=== PATIENT | female | born 1965 | race Two or more races ===

== ENCOUNTER 2018-03-05 14:28 | Inpatient (IN) | payer MEDICAID ==
[~2018-03-05] VITALS: Ht 162.6 cm; Wt 52.6 kg
[2018-03-05 14:44] VITALS: BP 157/85
[2018-03-05] MEDS ORDERED: Morphine Sulfate 4mg/ml Inj IVP ONE (15:00)
[2018-03-05] MEDS ORDERED: Isovue-300 100ml vial INJ PRN (15:00)
[2018-03-05] MEDS ORDERED: Ketorolac 30mg Inj IV ONE (15:00)
[2018-03-05 15:18] LABS: BASOPHILS % (AUTO) 0.6 % (0.0-2.0); EOSINOPHILS % (AUTO) 0.3 % (0.0-3.0); HEMATOCRIT 41.3 % (37.0-47.0); HEMOGLOBIN 13.7 G/DL (12.0-16.0); MEAN CORPUSCULAR VOLUME 86 FL (80-99); MONOCYTES % (AUTO) 3.5 % (1.0-10.0); NEUTROPHILS % (AUTO) 84.6 % (45.0-75.0); PLATELET COUNT 327 K/UL (150-450); RED BLOOD COUNT 4.81 M/UL (4.20-5.40); RED CELL DISTRIBUTION WIDTH 12.2 % (11.6-14.8); WHITE BLOOD COUNT 12.2 K/UL (4.8-10.8)
[2018-03-05 15:22] LABS: APPEARANCE,URINE SLIGHTLY CLOUDY; BILIRUBIN, URINE NEGATIVE (NEGATIVE); COLOR,URINE PALE YELLOW; GLUCOSE, URINE (UA) 4+ (NEGATIVE); KETONES,URINE 2+ (NEGATIVE); LEUKOCYTE ESTERASE ,URINE 3+ (NEGATIVE); NITRITE,URINE NEGATIVE (NEGATIVE); PH,URINE 5 (4.5-8.0); PROTEIN,URINE 3+ (NEGATIVE); UROBILINOGEN,URINE NORMAL MG/DL (0.0-1.0)
[2018-03-05 15:38] LABS: ALANINE AMINOTRANSFERASE 31 U/L (12-78); ALBUMIN 3.2 G/DL (3.4-5.0); ALBUMIN/GLOBULIN RATIO 0.6 (1.0-2.7); ALKALINE PHOSPHATASE 165 U/L (46-116); ANION GAP 16 mmol/L (5-15); ASPARTATE AMINO TRANSFERASE 73 U/L (15-37); BILIRUBIN,TOTAL 0.6 MG/DL (0.2-1.0); BLOOD UREA NITROGEN 20 mg/dL (7-18); CALCIUM 9.5 MG/DL (8.5-10.1); CARBON DIOXIDE 17 MMOL/L (21-32); CHLORIDE 91 MMOL/L (98-107); CREATININE 1.3 MG/DL (0.55-1.30); SODIUM 125 MMOL/L (136-145)
[2018-03-05 15:40] LABS: POTASSIUM 6.6 MMOL/L (3.5-5.1)
--- NOTE | 2018-03-05 16:15 | Emergency Room Report ---
History of Present Illness General Chief Complaint: Abdominal Pain Source: Patient, Medical Record Present Illness HPI 53-year-old female presents ED complaining of abdominal pain. Brought in by EMS. States pain started this morning. Right upper abdomen, sharp, 10 out of 10, nonradiating. Denies fevers chills. Denies chest pain or shortness of breath. Patient has history of pancreatitis. Notes history of diabetes. Denies nausea or vomiting. No other aggravating relieving factors. Denies any other associated symptoms Allergies: Coded Allergies: SULFAMETHOXAZOLE (Verified Allergy, Unknown, SWELLING, 03/05/18) TRIMETHOPRIM (Verified Allergy, Unknown, SWELLING, 03/05/18) Patient History Past Medical History: DM, HTN, other - pancreatitis Past Surgical History: none Pertinent Family History: none Social History: Denies: smoking, alcohol use, drug use Now: No Immunizations: UTD Reviewed Nursing Documentation: PMH: Agreed; PSxH: Agreed Nursing Documentation-PMH Past Medical History: No History, Except For Hx Diabetes: Yes Hx Gastrointestinal Problems: Yes - pancreatitis Review of Systems All Other Systems: negative except mentioned in HPI Physical Exam Vital Signs Date Time Temp Pulse Resp B/P (MAP) Pulse Ox O2 Delivery O2 Flow Rate FiO2 03/05/18 14:25 97.7 79 16 155/87 99 Room Air 97.7 Sp02 EP Interpretation: reviewed, normal General Appearance: alert, GCS 15, non-toxic, moderate distress Head: normocephalic, atraumatic Eyes: bilateral eye normal inspection, bilateral eye PERRL ENT: hearing grossly normal, normal pharynx, no angioedema, normal voice Neck: full range of motion, supple/symm/no masses Respiratory: chest non-tender, lungs clear, normal breath sounds, speaking full sentences Cardiovascular #1: regular rate, rhythm, no edema Cardiovascular #2: 2+ carotid (R), 2+ carotid (L), 2+ radial (R), 2+ radial (L) , 2+ dorsalis pedis (R), 2+ dorsalis pedis (L) Gastrointestinal: normal bowel sounds, soft, non-distended, no guarding, no rebound, tenderness Rectal: deferred Genitourinary: normal inspection, no CVA tenderness Musculoskeletal: back normal, gait/station normal, normal range of motion, non- tender Neurologic: alert, oriented x3, responsive, motor strength/tone normal, sensory intact, speech normal Psychiatric: judgement/insight normal, memory normal, mood/affect normal, no suicidal/homicidal ideation Reflexes: 3+ bicep (R), 3+ bicep (L), 3+ tricep (R), 3+ tricep (L), 3+ knee (R) , 3+ knee (L) Skin: normal color, no rash, warm/dry, well hydrated Lymphatic: no adenopathy Procedures Critical Care Time Critical Care Time i. I feel this is a highly complex case requiring extensive working including EKG/Rhythm strip, Xray/CT/US, Blood/urine lab work, repeat exams while in ED, and administration of strong opiates/narcotics for pain control, admission to hospital or close patient follow up. Total time: 30 min bedside evaluation and treatment excludes procedures (EKG). Reason for critical care: hypergylcemia, pancreatitis, hyperkalemia Possible complications: hypotension, hypertension, ID, shock, arrhythmias, metabolic acidosis, end organ damage, respiratory failure. Interventions: labs, IVFS, pain meds, CT. insulin. kayexelate. abx. Course: Patient presenting with abdominal pain. Lipase greater than 7000, glucose greater than 500 but not DKA. Positive UTI. CT shows pancreatitis with pancreatic duct stone. Status post cholecystectomy. Given IV fluids, insulin. Given Kayexalate. Given antibiotics Consultations: nursing staff, EMS, family Performed by: Dr Bernardo Tolerated well condition = serious j. because of unstable vital signs this patient had a condition that could potentially threaten life or limb. I feel this is a critical patient who required my full attention while patient was considered critical. Total Critical Care Time excluding procedures was greater than 35 minutes Medical Decision Making Diagnostic Impression: Primary Impression: Pancreatitis Qualified Codes: K85.10 - Biliary acute pancreatitis without necrosis or infection Additional Impressions: Hyperkalemia Hyperglycemia UTI (urinary tract infection) Qualified Codes: N39.0 - Urinary tract infection, site not specified ER Course Hospital Course 53-year-old female presents to ED with abdominal pain Differential diagnoses include: BPH, cystitis, pyelonephritis, kidney stone Clinical course Patient placed on stretcher. pvc monitor. After initial history and physical I ordered labs, IV fluids, UA, pain medication and CT scan Labs - no leukocytosis, Hb/Hct stable. Na 125, K 6.8, glucose > 500 with ? DKA. lipase > 7000 CT abdomen and pelvis - pancreatitis, with pancreatic duct stone EKGnormal sinus rhythm no acute ischemic changes interpreted by me, no evidence of hyperkalemic changes ABG shows no evidence of acidosis Given insulin, IV fluids. Given Kayexalate. Given antibiotics. Case discussed with Dr. Moscoso and he agreed to accept the patient to his service for further care and support I feel this is a highly complex case requiring extensive working including EKG/ Rhythm strip, Xray/CT/US, Blood/urine lab work, repeat exams while in ED, and administration of strong opiates/narcotics for pain control, admission to hospital or close patient follow up. Diagnosis - acute pancreatitis, hyperkalemia, hyperglycemia, UTI Patient admitted to [facility] in serious condition Labs Test 03/05/18 14:50 03/05/18 15:58 03/05/18 16:45 White Blood Count 12.2 K/UL (4.8-10.8) Red Blood Count 4.81 M/UL (4.20-5.40) Hemoglobin 13.7 G/DL (12.0-16.0) Hematocrit 41.3 % (37.0-47.0) Mean Corpuscular Volume 86 FL (80-99) Mean Corpuscular Hemoglobin 28.5 PG (27.0-31.0) Mean Corpuscular Hemoglobin Concent 33.2 G/DL (32.0-36.0) Red Cell Distribution Width 12.2 % (11.6-14.8) Platelet Count 327 K/UL (150-450) Mean Platelet Volume 6.9 FL (6.5-10.1) Neutrophils (%) (Auto) 84.6 % (45.0-75.0) Lymphocytes (%) (Auto) 11.0 % (20.0-45.0) Monocytes (%) (Auto) 3.5 % (1.0-10.0) Eosinophils (%) (Auto) 0.3 % (0.0-3.0) Basophils (%) (Auto) 0.6 % (0.0-2.0) Urine Color Pale yellow Urine Appearance Slightly cloudy Urine pH 5 (4.5-8.0) Urine Specific [place] 1.010 (1.005-1.035) Urine Protein 3+ (NEGATIVE) Urine Glucose (UA) 4+ (NEGATIVE) Urine Ketones 2+ (NEGATIVE) Urine Occult Blood 2+ (NEGATIVE) Urine Nitrite Negative (NEGATIVE) Urine Bilirubin Negative (NEGATIVE) Urine Urobilinogen Normal MG/DL (0.0-1.0) Urine Leukocyte Esterase 3+ (NEGATIVE) Urine RBC 20-30 /HPF (0 - 2) Urine WBC 10-15 /HPF (0 - 2) Urine Squamous Epithelial Cells Few /LPF (NONE/OCC) Urine Bacteria Few /HPF (NONE) Sodium Level 125 MMOL/L (136-145) Potassium Level 6.6 MMOL/L (3.5-5.1) Chloride Level 91 MMOL/L (98-107) Carbon Dioxide Level 17 MMOL/L (21-32) Anion Gap 16 mmol/L (5-15) Blood Urea Nitrogen 20 mg/dL (7-18) Creatinine 1.3 MG/DL (0.55-1.30) Estimat Glomerular Filtration Rate 43.0 mL/min (>60) Glucose Level 520 MG/DL (74-106) Calcium Level 9.5 MG/DL (8.5-10.1) Total Bilirubin 0.6 MG/DL (0.2-1.0) Aspartate Amino Transf (AST/SGOT) 73 U/L (15-37) Alanine Aminotransferase (ALT/SGPT) 31 U/L (12-78) Alkaline Phosphatase 165 U/L (46-116) Total Protein 8.9 G/DL (6.4-8.2) Albumin 3.2 G/DL (3.4-5.0) Globulin 5.7 g/dL Albumin/Globulin Ratio 0.6 (1.0-2.7) Lipase 7551 U/L (73-393) Lactic Acid Level 0.80 mmol/L (0.66-2.22) Acetone Level Positive-small (NEGATIVE) Arterial Blood pH 7.309 (7.350-7.450) Arterial Blood Partial Pressure CO2 32.3 mmHg (35.0-45.0) Arterial Blood Partial Pressure O2 91.9 mmHg (75.0-100.0) Arterial Blood HCO3 15.9 mmol/L (22.0-26.0) Arterial Blood Oxygen Saturation 95.8 % (92.0-98.0) Arterial Blood Base Excess -9.3 Zbigniew Test Positive EKG Diagnostic Results Rate: normal Rhythm: NSR ST Segments: no acute changes ASA given to the pt in ED: No Rhythm Strip Diag. Results EP Interpretation: yes Rhythm: NSR, no PVC's, no ectopy CT/MRI/US Diagnostic Results CT/MRI/US Diagnostic Results : Imaging Test Ordered: CT A/P Impression pancreatitis. pancreatic duct stone. Last Vital Signs Date Time Temp Pulse Resp B/P (MAP) Pulse Ox O2 Delivery O2 Flow Rate FiO2 03/05/18 15:13 97.7 03/05/18 14:44 82 20 157/85 100 Room Air Status: improved Disposition: ADMITTED INPATIENT Condition: Serious Referrals: ROB MANCUSO,REFERRING (PCP) Will Bernardo MD March 05, 2018 16:15
[2018-03-05 17:00] VITALS: BP 142/71
--- NOTE | 2018-03-05 17:22 | Diagnostic Imaging Report ---
Clinical Indication: Abdominal pain Technique: No oral contrast utilized, per emergency room physician request IV administration nonionic contrast. Venous phase spiral acquisition obtained through the abdomen and pelvis. Multiplanar reconstructions were generated. Total dose length product 516.53 mGycm. CTDIvol(s) 9.71 mGy. Dose reduction achieved using automated exposure control Comparison: none Findings: A 4 mm diameter calcification is seen within the pancreatic head. It is unclear whether this is within or just adjacent to the main pancreatic duct. The pancreatic duct within the pancreatic head is dilated. However, further upstream the pancreatic duct is not dilated. There is fairly extensive peripancreatic edema, although the pancreas itself does not appear particularly swollen. Edema extends cephalad adjacent to the greater curvature the stomach, into the barbara hepatis, and to a short extent caudad along the mesenteric root. The pancreas is well opacified, and no findings to suggest pancreatic necrosis are demonstrated. No focal fluid collections are evident. No pancreatic mass demonstrated. No other calcifications are evident. The gallbladder is not visualized, presumed surgically absent although no clips are evident. The common bile duct is mildly dilated, measuring 8 mm diameter. No common duct calculi or downstream obstructive lesion demonstrated. There is also very mild central intrahepatic biliary ductal dilatation. The liver, spleen, adrenals, kidneys are unremarkable. No retroperitoneal or mesenteric mass or adenopathy. Uterus demonstrates one or more masses consistent with fibroids. No adnexal mass demonstrated. No pelvic adenopathy. Lack of enteric contrast limits assessment of the GI tract. The appendix is not definitely identified, but no findings to suggest acute appendicitis are evident. No evidence of diverticulosis or diverticulitis. No small bowel distention. The distal esophagus, stomach, and duodenum are unremarkable. The included lung bases demonstrate posterior dependent atelectatic changes. The bones are unremarkable. The bladder is equivocally mildly thick walled, although this is probably an artifact of under distention. Impression: Findings consistent with acute nonnecrotizing pancreatitis. There is what appears to be a 4 mm calculus within the downstream pancreatic duct, although this appears slightly eccentric and less likely could represent an immediately adjacent pancreatic calcification. There is dilatation of the pancreatic duct for short distance upstream of the calcification, but most of the pancreatic duct is nondilated. There is no evidence of pseudocyst Nonvisualized gallbladder, presumed surgically absent. Mild dilatation of the extra hepatic and central intrahepatic ducts without evidence of downstream obstructive lesion. Probably related to postcholecystectomy state, but occult downstream obstructive process not completely excludable. Correlate with liver function tests, consider MRCP or nuclear hepatobiliary scan for further acquisition if clinically indicated Fibroid uterus Equivocally mildly thick-walled urinary bladder, most likely artifact of under distention but the possibility of acute cystitis should be considered Posterior dependent pulmonary atelectatic changes Findings discussed by phone with Dr. Bernardo at the time of interpretation The CT scanner at [facility] is accredited by the [employer] and the scans are performed using protocols designed to limit radiation exposure to as low as reasonably achievable to attain images of sufficient resolution adequate for diagnostic evaluation.
[2018-03-05] MEDS ORDERED: Piperacillin/Tazobactam 3.375 GM in NS 110 ML IVPB ONE (17:30)
[2018-03-05] MEDS ORDERED: HUMULIN 70100 UNIT/2 SUBQ ×2 (17:37→17:41)
[2018-03-05] MEDS ORDERED: ATORVASTATIN CA40 MG ORAL (17:37)
[2018-03-05] MEDS ORDERED: ASPIRIN EC81 MG ORAL (17:37)
[2018-03-05] MEDS ORDERED: ARTIFICIAL TEAR15 ML BOTH EYES (17:41)
[2018-03-05] MEDS ORDERED: FENOFIBRATE200 MG ORAL (17:52)
[2018-03-05] MEDS ORDERED: LISINOPRIL2.5 MG ORAL (17:52)
[2018-03-05] MEDS ORDERED: Sodium Polystyrene Sulfonate 15gm Powder ORAL ONE (18:45)
[2018-03-05 19:00] VITALS: BP 130/77
[2018-03-05] MEDS ORDERED: Mylanta II UD 30ml ORAL PRN (19:45)
[2018-03-05] MEDS ORDERED: Miralax 17gm pkt ORAL PRN (19:45)
[2018-03-05] MEDS ORDERED: Nitroglycerin Subl 0.4mg tab SL PRN (19:45)
[2018-03-05] MEDS: NovoLOG Insulin Flexpen SUBQ SCH (21:00)
[2018-03-05] MEDS: Heparin 5000 units/ml inj SUBQ SCH (21:40)
[2018-03-05] MEDS: Ketorolac 30mg Inj IV PRN (21:48)
--- NOTE | 2018-03-05 22:25 | History & Physical ---
History and Physical History & Physicial job # [id number] Alexis Moscoso MD March 05, 2018 22:25
[2018-03-05] MEDS: Piperacillin/Tazobactam 3.375 GM in NS 110 ML IVPB SCH (23:25)
[2018-03-06] VITALS: BP 147/70
--- NOTE | 2018-03-06 03:00 | History and Physical Report ---
DATE OF ADMISSION: 03/05/2018 CHIEF COMPLAINT: Abdominal pain, nausea, and vomiting. HISTORY OF PRESENT ILLNESS: This is a 53-year-old female with past medical history significant for diabetes type 2, dyslipidemia, recurrent pancreatitis, and hypertension, who has presented to the hospital complaining about abdominal pain, mostly in the epigastric area associated with nausea and vomiting for 24 hours. The patient stated that she has been having back pain for several days. It got progressively worsening. The pain is mostly in the mid abdominal epigastric area rotated to the upper abdominal area with 10/10 intensity. No radiation. No fever or chills. Unable to tolerate p.o. intake. Shortly after initial evaluation in the emergency room, the patient was admitted to the hospital with intractable nausea, vomiting, and epigastric pain most likely secondary to recurrent pancreatitis as a result of the pancreatic stone. PAST MEDICAL HISTORY/PAST SURGICAL HISTORY: As above. History of recurrent pancreatitis, diabetes type 2, hypertension, dyslipidemia, history of three-C sections, cholecystectomy, appendectomy, as well as left sinus surgery. MEDICATIONS AT HOME: Please refer to medication reconciliation. ALLERGIES: Sulfa medications as well as triamterene. SOCIAL HISTORY: No smoking, alcohol, or drugs. FAMILY HISTORY: Noncontributory except liver cirrhosis in the mother. REVIEW OF SYSTEMS: Mostly as above. Denies any dysuria, frequency, or hematuria. Complained about nausea and vomiting. Denies any hemoptysis or hematochezia. Denies any bright red blood per rectum. Denies any suicidal ideation. PHYSICAL EXAMINATION: VITAL SIGNS: On admission, temperature 97.7, pulse of 79, respirations 16, and blood pressure 155/87. GENERAL: The patient is awake, responsive, and in no acute distress. HEAD AND NECK: Pupils are equal and reactive to light. Extraocular movements are intact. Neck was supple. No JVD. LUNGS: Good air entry. No wheezing or rales. HEART: Reveals S1 and S2. Regular rhythm. No gallops. ABDOMEN: Soft. Tenderness in epigastric area. No rebound tenderness. No fluid shift. EXTREMITIES: No cyanosis, clubbing, or edema. NEUROLOGIC: Cranial nerves II trough XII grossly intact. Motor is 5/5 in all extremities. Gait is intact. LABORATORY AND DIAGNOSTIC DATA: On admission from the ER, ABG, pH of 7.309, pCO2 of 32, pO2 of 91, and saturating 95%. The patient's sodium was 125, potassium 6.6, chloride 91, bicarb 17, BUN 20, and creatinine 1.3. GFR is 43. Glucose is 520. Lactic acid is 0.80. Total bilirubin 0.6. AST of 73, AST of 31, and alkaline phosphatase was 165. Total protein is 8.9. Lipase is 7551. WBC of 12, hemoglobin of 13, hematocrit 41, and platelets is 321,000. Urinalysis, +3 protein, +4 glucose, +2 ketones, +3 leukocytes, 10 to 15 wbc, and acetone level is positive, small. The patient had an imaging study including CT scan of the abdomen and pelvis, which confirmed that the patient has consistent with acute non-necrotizing pancreatitis in the 4 mm calculi within the downstream of the pancreatic duct, although this appears slightly eccentric and less likely could represent an immediate adjacent pancreatic calcification. There is no other evidence of a pseudocyst. Nonvisualized gallbladder. The patient has a fibroid uterus. Thickening of the urinary bladder most likely is artifact. ASSESSMENT: 1. Abdominal pain, nausea, and vomiting most likely secondary to the chronic pancreatitis. 2. Diabetes type 2 with early diabetic ketoacidosis. 3. Hypertension. 4. Hyperkalemia. 5. Metabolic acidosis. 6. Dyslipidemia. PLAN: 1. I admit the patient to monitored unit. 2. Broad-spectrum antibiotics with Zosyn. 3. Pain medication. 4. Keep the patient NPO except medications. 5. Dr. Lazaro consultation from GI. 6. Discussed with the family member extensively at bedside. 7. Pain medication. 8. Code status is Full Code. 9. DVT prophylaxis with heparin subcutaneous. Alexis Moscoso M.D. DR: DAKOTA JOB#: [id number] CC:
[2018-03-06 04:00] VITALS: BP 126/72
[2018-03-06] MEDS: Piperacillin/Tazobactam 3.375 GM in NS 110 ML IVPB SCH ×3 (05:10→21:14)
[2018-03-06] MEDS: NovoLOG Insulin Flexpen SUBQ SCH ×4 (06:25→21:15)
[2018-03-06 08:00] VITALS: BP 143/77
[2018-03-06 09:03] LABS: BASOPHILS % (AUTO) 0.5 % (0.0-2.0); EOSINOPHILS % (AUTO) 0.8 % (0.0-3.0); HEMATOCRIT 34.5 % (37.0-47.0); HEMOGLOBIN 11.4 G/DL (12.0-16.0); LYMPHOCYTES % (AUTO) 17.9 % (20.0-45.0); MEAN CORPUSCULAR VOLUME 87 FL (80-99); MONOCYTES % (AUTO) 4.4 % (1.0-10.0); NEUTROPHILS % (AUTO) 76.4 % (45.0-75.0); PLATELET COUNT 239 K/UL (150-450); RED BLOOD COUNT 3.96 M/UL (4.20-5.40); RED CELL DISTRIBUTION WIDTH 12.5 % (11.6-14.8); WHITE BLOOD COUNT 6.6 K/UL (4.8-10.8)
[2018-03-06 09:06] LABS: INR 0.9 (0.9-1.1)
[2018-03-06] MEDS: Heparin 5000 units/ml inj SUBQ SCH ×2 (09:20→21:16)
[2018-03-06 09:45] LABS: PHOSPHORUS 3.7 MG/DL (2.5-4.9)
[2018-03-06 09:51] LABS: ALANINE AMINOTRANSFERASE 20 U/L (12-78); ALBUMIN 2.3 G/DL (3.4-5.0); ALBUMIN/GLOBULIN RATIO 0.6 (1.0-2.7); ALKALINE PHOSPHATASE 104 U/L (46-116); ANION GAP 14 mmol/L (5-15); ASPARTATE AMINO TRANSFERASE 19 U/L (15-37); BILIRUBIN,TOTAL 0.3 MG/DL (0.2-1.0); BLOOD UREA NITROGEN 17 mg/dL (7-18); CALCIUM 8.2 MG/DL (8.5-10.1); CARBON DIOXIDE 17 MMOL/L (21-32); CHLORIDE 107 MMOL/L (98-107); CREATININE 1.2 MG/DL (0.55-1.30); POTASSIUM 3.2 MMOL/L (3.5-5.1); SODIUM 137 MMOL/L (136-145)
[2018-03-06] MEDS ORDERED: Tubing IV Secondary IV ONE (09:51)
[2018-03-06 09:55] LABS: AMYLASE 509 U/L (25-115)
[2018-03-06] MEDS: Ketorolac 30mg Inj IV PRN (10:58)
--- NOTE | 2018-03-06 11:07 | GI Initial Consult Note ---
History of Present Illness General Date patient seen: March 06, 2018 Time patient seen: 10:00 Reason for Hospitalization: Abdominal Pain Referring physician: TEODORO SAENZ Reason for Consultation: PANCREATITIS Present Illness HPI HISTORY OF PRESENT ILLNESS: This is a 53-year-old female with past medical history significant for diabetes type 2, dyslipidemia, recurrent pancreatitis, and hypertension, who has presented to the hospital complaining about abdominal pain, mostly in the epigastric area associated with nausea and vomiting for 24 hours. The patient stated that she has been having back pain for several days. It got progressively worsening. The pain is mostly in the mid abdominal epigastric area rotated to the upper abdominal area with 10/10 intensity. No radiation. No fever or chills. Unable to tolerate p.o. intake. Shortly after initial evaluation in the emergency room, the patient was admitted to the hospital with intractable nausea, vomiting, and epigastric pain most likely secondary to recurrent pancreatitis as a result of the pancreatic stone. GI consulted for pancreatitis. Pt seen, awake A&Ox4 c/o of RUQ pain 10/10. Abdominal US showed CBD dilation 12mm. Presents today with elevated lipase, elevated glucose and electrolyte imbalance. Per patient, her abdominal pain has started last night. Denies any recent travels or dietary changes. No diarrhea. No history of colonoscopy or endoscopy. Home Meds Reported Medications Lisinopril* (LISINOPRIL*) 2.5 Mg Tablet, 2.5 MG ORAL DAILY, TAB 03/05/18 Fenofibrate,Micronized (FENOFIBRATE) 200 Mg Capsule, 200 MG ORAL DAILY, TAB 03/05/18 Hum Insulin Nph/Reg Insulin Hm (HUMULIN 70-30 VIAL) 100 Unit/1 Ml Vial, 25 UNITS SUBQ BID, VIAL 03/05/18 Dextran 70/Hypromellose (ARTIFICIAL TEARS EYE DROPS*) 15 Ml Drops, 1 DROP BOTH EYES PRN for Dry Eyes, ML 03/05/18 Aspirin Ec* (ASPIRIN EC*) 81 Mg Tablet.dr, 81 MG ORAL DAILY, TAB 03/05/18 Discontinued Reported Medications Atorvastatin Calcium* (ATORVASTATIN CALCIUM*) 40 Mg Tablet, 40 MG ORAL BEDTIME, TAB 03/05/18 Med list reviewed/reconciled: Yes Allergies: Coded Allergies: SULFAMETHOXAZOLE (Verified Allergy, Unknown, SWELLING, 03/05/18) TRIMETHOPRIM (Verified Allergy, Unknown, SWELLING, 03/05/18) Patient History History Provided By: Patient, Medical Record PMH Narrative PAST MEDICAL HISTORY/PAST SURGICAL HISTORY: As above. History of recurrent pancreatitis, diabetes type 2, hypertension, dyslipidemia, history of three-C sections, cholecystectomy, appendectomy, as well as left sinus surgery. Social History: Denies: smoking, alcohol use, drug use, other Review of Systems All Other Systems: negative except mentioned in HPI Physical Exam Vital Signs Date Time Temp Pulse Resp B/P (MAP) Pulse Ox O2 Delivery O2 Flow Rate FiO2 03/05/18 14:25 97.7 79 16 155/87 99 Room Air 97.7 Sp02 EP Interpretation: reviewed, normal Labs Laboratory Tests Test 03/05/18 14:50 03/05/18 15:58 03/05/18 16:45 03/06/18 08:00 White Blood Count 12.2 K/UL (4.8-10.8) H 6.6 K/UL (4.8-10.8) Red Blood Count 4.81 M/UL (4.20-5.40) 3.96 M/UL (4.20-5.40) L Hemoglobin 13.7 G/DL (12.0-16.0) 11.4 G/DL (12.0-16.0) L Hematocrit 41.3 % (37.0-47.0) 34.5 % (37.0-47.0) L Mean Corpuscular Volume 86 FL (80-99) 87 FL (80-99) Mean Corpuscular Hemoglobin 28.5 PG (27.0-31.0) 28.9 PG (27.0-31.0) Mean Corpuscular Hemoglobin Concent 33.2 G/DL (32.0-36.0) 33.2 G/DL (32.0-36.0) Red Cell Distribution Width 12.2 % (11.6-14.8) 12.5 % (11.6-14.8) Platelet Count 327 K/UL (150-450) 239 K/UL (150-450) Mean Platelet Volume 6.9 FL (6.5-10.1) 6.9 FL (6.5-10.1) Neutrophils (%) (Auto) 84.6 % (45.0-75.0) H 76.4 % (45.0-75.0) H Lymphocytes (%) (Auto) 11.0 % (20.0-45.0) L 17.9 % (20.0-45.0) L Monocytes (%) (Auto) 3.5 % (1.0-10.0) 4.4 % (1.0-10.0) Eosinophils (%) (Auto) 0.3 % (0.0-3.0) 0.8 % (0.0-3.0) Basophils (%) (Auto) 0.6 % (0.0-2.0) 0.5 % (0.0-2.0) Urine Color Pale yellow Urine Appearance Slightly cloudy Urine pH 5 (4.5-8.0) Urine Specific [place] 1.010 (1.005-1.035) Urine Protein 3+ (NEGATIVE) H Urine Glucose (UA) 4+ (NEGATIVE) H Urine Ketones 2+ (NEGATIVE) H Urine Occult Blood 2+ (NEGATIVE) H Urine Nitrite Negative (NEGATIVE) Urine Bilirubin Negative (NEGATIVE) Urine Urobilinogen Normal MG/DL (0.0-1.0) Urine Leukocyte Esterase 3+ (NEGATIVE) H Urine RBC 20-30 /HPF (0 - 2) H Urine WBC 10-15 /HPF (0 - 2) H Urine Squamous Epithelial Cells Few /LPF (NONE/OCC) Urine Bacteria Few /HPF (NONE) Sodium Level 125 MMOL/L (136-145) L 137 MMOL/L (136-145) # Potassium Level 6.6 MMOL/L (3.5-5.1) *H 3.2 MMOL/L (3.5-5.1) #L Chloride Level 91 MMOL/L (98-107) L 107 MMOL/L (98-107) Carbon Dioxide Level 17 MMOL/L (21-32) L 17 MMOL/L (21-32) L Anion Gap 16 mmol/L (5-15) H 14 mmol/L (5-15) Blood Urea Nitrogen 20 mg/dL (7-18) H 17 mg/dL (7-18) Creatinine 1.3 MG/DL (0.55-1.30) 1.2 MG/DL (0.55-1.30) Estimat Glomerular Filtration Rate 43.0 mL/min (>60) 47.2 mL/min (>60) Glucose Level 520 MG/DL (74-106) *H 350 MG/DL (74-106) #H Calcium Level 9.5 MG/DL (8.5-10.1) 8.2 MG/DL (8.5-10.1) L Total Bilirubin 0.6 MG/DL (0.2-1.0) 0.3 MG/DL (0.2-1.0) Aspartate Amino Transf (AST/SGOT) 73 U/L (15-37) H 19 U/L (15-37) Alanine Aminotransferase (ALT/SGPT) 31 U/L (12-78) 20 U/L (12-78) Alkaline Phosphatase 165 U/L (46-116) H 104 U/L (46-116) Total Protein 8.9 G/DL (6.4-8.2) H 6.4 G/DL (6.4-8.2) Albumin 3.2 G/DL (3.4-5.0) L 2.3 G/DL (3.4-5.0) L Globulin 5.7 g/dL 4.1 g/dL Albumin/Globulin Ratio 0.6 (1.0-2.7) L 0.6 (1.0-2.7) L Lipase 7551 U/L (73-393) H 4350 U/L (73-393) H Lactic Acid Level 0.80 mmol/L (0.66-2.22) Acetone Level Positive-small (NEGATIVE) Arterial Blood pH 7.309 (7.350-7.450) Arterial Blood Partial Pressure CO2 32.3 mmHg (35.0-45.0) L Arterial Blood Partial Pressure O2 91.9 mmHg (75.0-100.0) Arterial Blood HCO3 15.9 mmol/L (22.0-26.0) L Arterial Blood Oxygen Saturation 95.8 % (92.0-98.0) Arterial Blood Base Excess -9.3 Zbigniew Test Positive Prothrombin Time 9.8 SEC (9.30-11.50) Prothromb Time International Ratio 0.9 (0.9-1.1) Activated Partial Thromboplast Time 25 SEC (23-33) Hemoglobin A1c 13.6 % (4.3-6.0) H Phosphorus Level 3.7 MG/DL (2.5-4.9) Magnesium Level 1.9 MG/DL (1.8-2.4) Troponin I 0.017 ng/mL (0.000-0.056) Amylase Level 509 U/L (25-115) *H Thyroid Stimulating Hormone (TSH) 1.072 uiU/mL (0.358-3.740) General Appearance: well appearing, no apparent distress, alert Head: normocephalic EENT: PERRL/EOMI, normal ENT inspection Neck: supple Respiratory: normal breath sounds, no respiratory distress Cardiovascular: normal rate Gastrointestinal: normal inspection, non tender, soft, normal bowel sounds, non -distended Rectal: deferred Genitourinary: no CVA tenderness Musculoskeletal: normal inspection, back normal Neurologic: normal inspection, alert, oriented x3, responsive Psychiatric: normal inspection, judgement/insight normal, memory normal Skin: normal inspection, normal color, no rash, warm/dry, palpation normal, well hydrated Lymphatic: normal inspection, no adenopathy Current Medications Current Medications Medications (Trade) Dose Ordered Sig/Shruti Route PRN Reason Start Time Stop Time Status Last Admin Dose Admin Acetaminophen (Tylenol) 650 mg Q4H PRN ORAL fever 03/05/18 19:45 04/04/18 19:44 Al Hydroxide/Mg Hydroxide (Mylanta II) 30 ml Q6H PRN ORAL dyspepsia 03/05/18 19:45 04/04/18 19:44 Dextrose (Dextrose 50%) STAT PRN IV Hypoglycemia 03/05/18 19:45 04/04/18 19:44 Dextrose (Dextrose 50%) STAT PRN IV Hypoglycemia 03/05/18 19:45 04/04/18 19:44 Diphenhydramine HCl (Benadryl) 25 mg Q6H PRN ORAL Itching/Pruritis 03/05/18 19:45 04/04/18 19:44 Heparin Sodium (Porcine) (Heparin 5000 units/ml) 5,000 units EVERY 12 HOURS SUBQ 03/05/18 21:00 04/04/18 20:59 03/06/18 09:20 Insulin Aspart (NovoLOG) BEFORE MEALS AND HS SUBQ 03/05/18 21:00 04/04/18 20:59 Iopamidol (Isovue-300 100ml) 100 ml NOW PRN INJ Radiology Procedure 03/05/18 15:00 Ketorolac Tromethamine (Toradol 30mg) 30 mg Q6H PRN IV moderate pian 4-6 03/05/18 19:45 03/10/18 19:44 03/06/18 10:58 Nitroglycerin (Ntg) 0.4 mg Q5M X 3 DOSES PRN SL Prn Chest Pain 03/05/18 19:45 04/04/18 19:44 Ondansetron HCl (Zofran) 4 mg Q6H PRN IVP Nausea & Vomiting 03/05/18 19:45 04/04/18 19:44 Piperacillin Sod/ Tazobactam Sod 3.375 gm/Sodium Chloride 110 ml @ 27 mls/hr EVERY 8 HOURS IVPB 03/05/18 22:00 03/12/18 21:59 03/06/18 05:10 Polyethylene Glycol (Miralax) 17 gm HSPRN PRN ORAL Constipation 03/05/18 19:45 04/04/18 19:44 Sodium Chloride 1,000 ml @ 100 mls/hr Q10H IV 03/06/18 20:45 04/04/18 20:44 Temazepam (Restoril) 15 mg HSPRN PRN ORAL Insomnia 03/05/18 19:45 03/12/18 19:44 GI: Plan Problems: (1) Electrolyte imbalance (2) Dilated cbd, acquired (3) Pancreatitis (4) Hyperglycemia (5) Diarrhea Plan abdominal U/S reviewed >> CBD dilation 12mm hx of cholecystectomy MRCP taken, will consider ERCP pending results. CLD, adv as tolerated pain mgmt DM management abx anemia work up OB stool r/o GI bleed monitor H&H, prn transfusions bowel regime ppi fu labs, cdiff trend amylase/lipase levels Discussed with Dr. Lazaro. Thank you for this patient referral, we will follow. The patient was seen and examined at bedside and all new and available data was reviewed in the patients chart. I agree with the above findings, impression and plan. (Patient seen earlier today. Signature stamp does not reflect patient encounter time.). - MD Lyudmila Funk,[place]-Ismael IGNITER CAPPER March 06, 2018 11:07
[2018-03-06 12:00] VITALS: BP 145/78
--- NOTE | 2018-03-06 12:02 | Diagnostic Imaging Report ---
Indication: Abdominal pain Technique: Paredes-scale and duplex images of the upper abdomen were obtained Comparison: Abdomen pelvis CT 03/05/2018 Findings: Gallbladder is surgically absent. Common bile duct measures 12 mm in diameter. There is questionable mild intrahepatic biliary ductal dilatation. Liver demonstrates normal echogenicity, no focal abnormality. There is questionably slight surface micronodularity Portal vein and hepatic veins are patent. The pancreas appears enlarged, edematous, hypoechoic. Focally dilated pancreatic duct with a small calcification is demonstrated in the pancreatic head, corresponding to abnormality described on recent CT. There is peripancreatic edema and possibly a small amount of ascites fluid. Spleen is unremarkable. Left kidney measures 10.3 cm in length. Right kidney measures 10.2 cm length. Both kidneys demonstrate equivocally slightly increased echogenicity There is no hydronephrosis. No definite focal renal abnormality. Prominent echoes in the left renal hilum are most likely artifactual as no calculi are demonstrated on recent CT scan. . Non-aneurysmal abdominal aorta . Impression: Surgically absent gallbladder. Mildly dilated extra hepatic and central intrahepatic bile ducts, also demonstrated on recent CT scan Edematous hypoechoic pancreas, consistent with acute pancreatitis demonstrated on recent CT. Note also is made of calcification and focal ductal dilatation in the pancreatic head, also reported on recent CT Equivocal trace ascites Equivocal slight hepatic surface micronodular could indicate early cirrhotic change although this is not corroborated on recent CT scan
--- NOTE | 2018-03-06 13:24 | Consultation ---
History of Present Illness General Date patient seen: March 06, 2018 Chief Complaint: Abdominal Pain Referring physician: TEODORO SAENZ Present Illness HPI 53-year-old female with hx of cholecystectomy, pancreatitis, DM, presented to ED complaining of abdominal pain. She was diagnosed to have acute pancreatitis and because of her electrolyte abnormalities, she is admitted to telemetry. Allergies: Coded Allergies: SULFAMETHOXAZOLE (Verified Allergy, Unknown, SWELLING, 03/05/18) TRIMETHOPRIM (Verified Allergy, Unknown, SWELLING, 03/05/18) Medication History Scheduled Aspirin Ec* (Aspirin Ec*), 81 MG ORAL DAILY, (Reported) Fenofibrate,Micronized (Fenofibrate), 200 MG ORAL DAILY, (Reported) Hum Insulin Nph/Reg Insulin Hm (Humulin 70-30 Vial), 25 UNITS SUBQ BID, ( Reported) Lisinopril* (Lisinopril*), 2.5 MG ORAL DAILY, (Reported) Scheduled PRN Dextran 70/Hypromellose (Artificial Tears Eye Drops*), 1 DROP BOTH EYES for Dry Eyes, (Reported) Discontinued Medications Atorvastatin Calcium* (Atorvastatin Calcium*), 40 MG ORAL BEDTIME, (Reported) Discontinued Reason: Pt stopped taking med Patient History Healthcare decision maker N Resuscitation status Full Code Advanced Directive on File Past Medical/Surgical History Past Medical/Surgical History: (1) Dilated cbd, acquired Review of Systems Gastrointestinal: Reports: abdominal pain, nausea, vomiting All Other Systems: negative except mentioned in HPI Physical Exam General Appearance: WD/WN Lines, tubes and drains: peripheral HEENT: normocephalic, atraumatic Neck: non-tender, normal alignment Respiratory/Chest: chest wall non-tender, lungs clear Cardiovascular/Chest: normal peripheral pulses Abdomen: normal bowel sounds Genitourinary/Rectal: normal genital exam Extremities: normal range of motion Last 24 Hour Vital Signs Date Time Temp Pulse Resp B/P (MAP) Pulse Ox O2 Delivery O2 Flow Rate FiO2 03/06/18 12:00 76 03/06/18 08:00 97.7 68 20 143/77 100 Room Air 97.7 03/06/18 08:00 66 03/06/18 04:00 97.0 69 20 126/72 100 Room Air 97.0 03/06/18 04:00 68 03/06/18 00:00 97.5 78 20 147/70 99 Room Air 97.5 03/06/18 00:00 84 03/05/18 21:16 97.7 76 17 130/77 100 Room Air 207.9 03/05/18 19:00 76 17 130/77 100 Room Air 03/05/18 17:00 82 20 142/71 100 Room Air 03/05/18 15:13 97.7 03/05/18 15:13 97.7 03/05/18 14:44 82 20 157/85 100 Room Air 03/05/18 14:25 97.7 79 16 155/87 99 Room Air 97.7 Intake and Output 03/05/18 03/06/18 19:00 07:00 Intake Total 0 ml Balance 0 ml Intake Oral 0 ml # Voids 3 # Bowel Movements 1 Laboratory Tests Test 03/05/18 14:50 03/05/18 15:58 03/05/18 16:45 03/06/18 08:00 White Blood Count 12.2 K/UL (4.8-10.8) H 6.6 K/UL (4.8-10.8) Red Blood Count 4.81 M/UL (4.20-5.40) 3.96 M/UL (4.20-5.40) L Hemoglobin 13.7 G/DL (12.0-16.0) 11.4 G/DL (12.0-16.0) L Hematocrit 41.3 % (37.0-47.0) 34.5 % (37.0-47.0) L Mean Corpuscular Volume 86 FL (80-99) 87 FL (80-99) Mean Corpuscular Hemoglobin 28.5 PG (27.0-31.0) 28.9 PG (27.0-31.0) Mean Corpuscular Hemoglobin Concent 33.2 G/DL (32.0-36.0) 33.2 G/DL (32.0-36.0) Red Cell Distribution Width 12.2 % (11.6-14.8) 12.5 % (11.6-14.8) Platelet Count 327 K/UL (150-450) 239 K/UL (150-450) Mean Platelet Volume 6.9 FL (6.5-10.1) 6.9 FL (6.5-10.1) Neutrophils (%) (Auto) 84.6 % (45.0-75.0) H 76.4 % (45.0-75.0) H Lymphocytes (%) (Auto) 11.0 % (20.0-45.0) L 17.9 % (20.0-45.0) L Monocytes (%) (Auto) 3.5 % (1.0-10.0) 4.4 % (1.0-10.0) Eosinophils (%) (Auto) 0.3 % (0.0-3.0) 0.8 % (0.0-3.0) Basophils (%) (Auto) 0.6 % (0.0-2.0) 0.5 % (0.0-2.0) Urine Color Pale yellow Urine Appearance Slightly cloudy Urine pH 5 (4.5-8.0) Urine Specific [place] 1.010 (1.005-1.035) Urine Protein 3+ (NEGATIVE) H Urine Glucose (UA) 4+ (NEGATIVE) H Urine Ketones 2+ (NEGATIVE) H Urine Occult Blood 2+ (NEGATIVE) H Urine Nitrite Negative (NEGATIVE) Urine Bilirubin Negative (NEGATIVE) Urine Urobilinogen Normal MG/DL (0.0-1.0) Urine Leukocyte Esterase 3+ (NEGATIVE) H Urine RBC 20-30 /HPF (0 - 2) H Urine WBC 10-15 /HPF (0 - 2) H Urine Squamous Epithelial Cells Few /LPF (NONE/OCC) Urine Bacteria Few /HPF (NONE) Sodium Level 125 MMOL/L (136-145) L 137 MMOL/L (136-145) # Potassium Level 6.6 MMOL/L (3.5-5.1) *H 3.2 MMOL/L (3.5-5.1) #L Chloride Level 91 MMOL/L (98-107) L 107 MMOL/L (98-107) Carbon Dioxide Level 17 MMOL/L (21-32) L 17 MMOL/L (21-32) L Anion Gap 16 mmol/L (5-15) H 14 mmol/L (5-15) Blood Urea Nitrogen 20 mg/dL (7-18) H 17 mg/dL (7-18) Creatinine 1.3 MG/DL (0.55-1.30) 1.2 MG/DL (0.55-1.30) Estimat Glomerular Filtration Rate 43.0 mL/min (>60) 47.2 mL/min (>60) Glucose Level 520 MG/DL (74-106) *H 350 MG/DL (74-106) #H Calcium Level 9.5 MG/DL (8.5-10.1) 8.2 MG/DL (8.5-10.1) L Total Bilirubin 0.6 MG/DL (0.2-1.0) 0.3 MG/DL (0.2-1.0) Aspartate Amino Transf (AST/SGOT) 73 U/L (15-37) H 19 U/L (15-37) Alanine Aminotransferase (ALT/SGPT) 31 U/L (12-78) 20 U/L (12-78) Alkaline Phosphatase 165 U/L (46-116) H 104 U/L (46-116) Total Protein 8.9 G/DL (6.4-8.2) H 6.4 G/DL (6.4-8.2) Albumin 3.2 G/DL (3.4-5.0) L 2.3 G/DL (3.4-5.0) L Globulin 5.7 g/dL 4.1 g/dL Albumin/Globulin Ratio 0.6 (1.0-2.7) L 0.6 (1.0-2.7) L Lipase 7551 U/L (73-393) H 4350 U/L (73-393) H Lactic Acid Level 0.80 mmol/L (0.66-2.22) Acetone Level Positive-small (NEGATIVE) Arterial Blood pH 7.309 (7.350-7.450) Arterial Blood Partial Pressure CO2 32.3 mmHg (35.0-45.0) L Arterial Blood Partial Pressure O2 91.9 mmHg (75.0-100.0) Arterial Blood HCO3 15.9 mmol/L (22.0-26.0) L Arterial Blood Oxygen Saturation 95.8 % (92.0-98.0) Arterial Blood Base Excess -9.3 Zbigniew Test Positive Prothrombin Time 9.8 SEC (9.30-11.50) Prothromb Time International Ratio 0.9 (0.9-1.1) Activated Partial Thromboplast Time 25 SEC (23-33) Hemoglobin A1c 13.6 % (4.3-6.0) H Phosphorus Level 3.7 MG/DL (2.5-4.9) Magnesium Level 1.9 MG/DL (1.8-2.4) Troponin I 0.017 ng/mL (0.000-0.056) Amylase Level 509 U/L (25-115) *H Thyroid Stimulating Hormone (TSH) 1.072 uiU/mL (0.358-3.740) Microbiology Date/Time Source Procedure Growth Status 03/05/18 14:50 Urine,Clean Catch Urine Culture - Preliminary Gram Negative Bacillus 1 Resulted Height (Feet): 5 Height (Inches): 4.00 Weight (Pounds): 116 Medications Current Medications Medications (Trade) Dose Ordered Sig/Shruti Route PRN Reason Start Time Stop Time Status Last Admin Dose Admin Acetaminophen (Tylenol) 650 mg Q4H PRN ORAL fever 03/05/18 19:45 04/04/18 19:44 Al Hydroxide/Mg Hydroxide (Mylanta II) 30 ml Q6H PRN ORAL dyspepsia 03/05/18 19:45 04/04/18 19:44 Dextrose (Dextrose 50%) STAT PRN IV Hypoglycemia 03/05/18 19:45 04/04/18 19:44 Diphenhydramine HCl (Benadryl) 25 mg Q6H PRN ORAL Itching/Pruritis 03/05/18 19:45 04/04/18 19:44 Heparin Sodium (Porcine) (Heparin 5000 units/ml) 5,000 units EVERY 12 HOURS SUBQ 03/05/18 21:00 04/04/18 20:59 03/06/18 09:20 Insulin Aspart (NovoLOG) BEFORE MEALS AND HS SUBQ 03/05/18 21:00 04/04/18 20:59 Ketorolac Tromethamine (Toradol 30mg) 30 mg Q6H PRN IV moderate pian 4-6 03/05/18 19:45 03/10/18 19:44 03/06/18 10:58 Nitroglycerin (Ntg) 0.4 mg Q5M X 3 DOSES PRN SL Prn Chest Pain 03/05/18 19:45 04/04/18 19:44 Non-Formulary Medication (Non-Formulary Med) 1 ea EVERY 4 HOURS PRN IV Pain Scale (6-10) 03/06/18 13:00 04/05/18 12:59 UNV Ondansetron HCl (Zofran) 4 mg Q6H PRN IVP Nausea & Vomiting 03/05/18 19:45 04/04/18 19:44 Piperacillin Sod/ Tazobactam Sod 3.375 gm/Sodium Chloride 110 ml @ 27 mls/hr EVERY 8 HOURS IVPB 03/05/18 22:00 03/12/18 21:59 03/06/18 05:10 Polyethylene Glycol (Miralax) 17 gm HSPRN PRN ORAL Constipation 03/05/18 19:45 04/04/18 19:44 Sodium Chloride 1,000 ml @ 100 mls/hr Q10H IV 03/06/18 20:45 04/04/18 20:44 Temazepam (Restoril) 15 mg HSPRN PRN ORAL Insomnia 03/05/18 19:45 03/12/18 19:44 Assessment/Plan Problem List: (1) Hyperkalemia ICD Codes: E87.5 - Hyperkalemia SNOMED: 23287806 (2) Pancreatitis ICD Codes: K85.90 - Acute pancreatitis without necrosis or infection, unspecified SNOMED: 39295657 Qualifiers: Qualified Codes: K85.10 - Biliary acute pancreatitis without necrosis or infection Assessment/Plan iv fluids analgesics check electrolytes symptomatic treatment check amylase and lipase f/u by GI sliding scale Isaiah Flores MD March 06, 2018 13:24
[2018-03-06] MEDS: Morphine Sulfate 4mg/ml Inj IVP PRN ×2 (13:54→20:54)
--- NOTE | 2018-03-06 14:55 | Diagnostic Imaging Report ---
Indication: Abdominal pain, pancreatitis, suspected pancreatic duct stone on earlier CT scan Technique: Coronal and axial single shot fast spin-echo breath-hold, axial T2 FRFSE, 2-D thick slab MRCP, AXIAL 2-D FIESTA fat saturated, axial 3-D dual echo breath-hold, water weighted axial LAVA FLEX, revealed 3-D MRCP images were obtained of the abdomen. MIP reconstructions were generated of the bile ducts Comparison: CT scan 03/05/2018 Findings: As demonstrated on recent CT, there is mild ectasia of the pancreatic duct within the pancreatic head. The suspected calculus seen on the CT scan is not definitely demonstrated on the current images. The coronal single shot fast spin-echo images suggest a small filling defect in the pancreatic duct farther upstream, but this is not corroborated on other sequences. The axial single shot fast spin echoes, the other hand, suggest a small filling defect in the common bile duct at the level of the ampulla incompletely filling it. This is likewise not corroborated on other sequences. As demonstrated previously, the pancreas is edematous and there is edema of the peripancreatic fat. There may be trace intraperitoneal fluid as well. No pleural effusion demonstrated. No focal pancreatic abnormality demonstrated. Splenic hilar varicosities and left upper quadrant varicosities are noted. 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 There are small gastric varices also noted. As demonstrated on the earlier studies, the extrahepatic bile ducts are mildly ectatic, common bile duct and common hepatic duct measuring up to 8 mm in diameter. The cystic duct remnant is also somewhat ectatic. The gallbladder is absent. Minimal intrahepatic biliary ductal dilatation is noted. No evidence of pancreatic head mass. No definite ampullary obstructing lesion. The liver, spleen, adrenals, kidneys are all unremarkable. Impression: Suspected pancreatic ductal calculus described on recent CT scan is not confirmed on MRCP images. It is a possibility that that the calculus seen on CT was a periductal parenchymal calcification not within the duct. Another possibility is that the CT finding is real but occult on MRCP. Another possibility is that an intraductal calculus is present but mobile as there is a suggestion of a possible small calculus further upstream on one sequence, and near the ampulla further downstream on a second sequence. Mild extrahepatic biliary ductal dilatation again demonstrated, without evidence of downstream obstructive lesion. Evidence of prior cholecystectomy Peripancreatic edema consistent with acute pancreatitis, also previously described Splenic to portal vein collaterals in the left upper quadrant as well as perigastric varices. In retrospect, prior CT scan demonstrates occlusion, likely chronic, of the splenic vein
[2018-03-06 16:00] VITALS: BP 162/78
[2018-03-06 20:00] VITALS: BP 152/76
--- NOTE | 2018-03-06 22:43 | Internal Med Progress Note ---
Subjective Physician Name Alexis Moscoso Attending Physician Alexis Moscoso MD Current Medications Medications (Trade) Dose Ordered Sig/Shruti Route PRN Reason Start Time Stop Time Status Last Admin Dose Admin Acetaminophen (Tylenol) 650 mg Q4H PRN ORAL fever 03/05/18 19:45 04/04/18 19:44 Al Hydroxide/Mg Hydroxide (Mylanta II) 30 ml Q6H PRN ORAL dyspepsia 03/05/18 19:45 04/04/18 19:44 Clonidine HCl (Catapres Tab) 0.1 mg Q6H PRN ORAL For SBP>160 03/06/18 17:24 04/05/18 17:23 Dextrose (Dextrose 50%) STAT PRN IV Hypoglycemia 03/05/18 19:45 04/04/18 19:44 Diphenhydramine HCl (Benadryl) 25 mg Q6H PRN ORAL Itching/Pruritis 03/05/18 19:45 04/04/18 19:44 Heparin Sodium (Porcine) (Heparin 5000 units/ml) 5,000 units EVERY 12 HOURS SUBQ 03/05/18 21:00 04/04/18 20:59 03/06/18 21:16 Insulin Aspart (NovoLOG) BEFORE MEALS AND HS SUBQ 03/05/18 21:00 04/04/18 20:59 03/06/18 21:15 Ketorolac Tromethamine (Toradol 30mg) 30 mg Q6H PRN IV moderate pian 4-6 03/05/18 19:45 03/10/18 19:44 03/06/18 10:58 Morphine Sulfate (Morphine Sulfate) 2 mg Q4H PRN IVP For Severe Pain (7-10) 03/06/18 13:41 03/13/18 13:40 03/06/18 20:54 Nitroglycerin (Ntg) 0.4 mg Q5M X 3 DOSES PRN SL Prn Chest Pain 03/05/18 19:45 04/04/18 19:44 Ondansetron HCl (Zofran) 4 mg Q6H PRN IVP Nausea & Vomiting 03/05/18 19:45 04/04/18 19:44 Piperacillin Sod/ Tazobactam Sod 3.375 gm/Sodium Chloride 110 ml @ 27 mls/hr EVERY 8 HOURS IVPB 03/05/18 22:00 03/12/18 21:59 03/06/18 21:14 Polyethylene Glycol (Miralax) 17 gm HSPRN PRN ORAL Constipation 03/05/18 19:45 04/04/18 19:44 Sodium Chloride 1,000 ml @ 100 mls/hr Q10H IV 03/06/18 20:45 04/04/18 20:44 03/06/18 19:57 Temazepam (Restoril) 15 mg HSPRN PRN ORAL Insomnia 03/05/18 19:45 03/12/18 19:44 Allergies: Coded Allergies: SULFAMETHOXAZOLE (Verified Allergy, Unknown, SWELLING, 03/05/18) TRIMETHOPRIM (Verified Allergy, Unknown, SWELLING, 03/05/18) Subjective awake, alert, responsive, C/O less abdominal pain and Nausea / Vomiting Objective Last Vital Signs Date Time Temp Pulse Resp B/P (MAP) Pulse Ox O2 Delivery O2 Flow Rate FiO2 03/06/18 20:00 98.2 62 20 152/76 99 Room Air 98.2 Laboratory Tests Test 03/06/18 08:00 White Blood Count 6.6 K/UL (4.8-10.8) Red Blood Count 3.96 M/UL (4.20-5.40) L Hemoglobin 11.4 G/DL (12.0-16.0) L Hematocrit 34.5 % (37.0-47.0) L Mean Corpuscular Volume 87 FL (80-99) Mean Corpuscular Hemoglobin 28.9 PG (27.0-31.0) Mean Corpuscular Hemoglobin Concent 33.2 G/DL (32.0-36.0) Red Cell Distribution Width 12.5 % (11.6-14.8) Platelet Count 239 K/UL (150-450) Mean Platelet Volume 6.9 FL (6.5-10.1) Neutrophils (%) (Auto) 76.4 % (45.0-75.0) H Lymphocytes (%) (Auto) 17.9 % (20.0-45.0) L Monocytes (%) (Auto) 4.4 % (1.0-10.0) Eosinophils (%) (Auto) 0.8 % (0.0-3.0) Basophils (%) (Auto) 0.5 % (0.0-2.0) Prothrombin Time 9.8 SEC (9.30-11.50) Prothromb Time International Ratio 0.9 (0.9-1.1) Activated Partial Thromboplast Time 25 SEC (23-33) Sodium Level 137 MMOL/L (136-145) # Potassium Level 3.2 MMOL/L (3.5-5.1) #L Chloride Level 107 MMOL/L (98-107) Carbon Dioxide Level 17 MMOL/L (21-32) L Anion Gap 14 mmol/L (5-15) Blood Urea Nitrogen 17 mg/dL (7-18) Creatinine 1.2 MG/DL (0.55-1.30) Estimat Glomerular Filtration Rate 47.2 mL/min (>60) Glucose Level 350 MG/DL (74-106) #H Hemoglobin A1c 13.6 % (4.3-6.0) H Calcium Level 8.2 MG/DL (8.5-10.1) L Phosphorus Level 3.7 MG/DL (2.5-4.9) Magnesium Level 1.9 MG/DL (1.8-2.4) Total Bilirubin 0.3 MG/DL (0.2-1.0) Aspartate Amino Transf (AST/SGOT) 19 U/L (15-37) Alanine Aminotransferase (ALT/SGPT) 20 U/L (12-78) Alkaline Phosphatase 104 U/L (46-116) Troponin I 0.017 ng/mL (0.000-0.056) Total Protein 6.4 G/DL (6.4-8.2) Albumin 2.3 G/DL (3.4-5.0) L Globulin 4.1 g/dL Albumin/Globulin Ratio 0.6 (1.0-2.7) L Amylase Level 509 U/L (25-115) *H Lipase 4350 U/L (73-393) H Thyroid Stimulating Hormone (TSH) 1.072 uiU/mL (0.358-3.740) Microbiology Date/Time Source Procedure Growth Status 03/05/18 14:50 Urine,Clean Catch Urine Culture - Preliminary Gram Negative Bacillus 1 Resulted Intake and Output 03/05/18 03/06/18 19:00 07:00 Intake Total 0 ml Balance 0 ml Intake Oral 0 ml # Voids 3 # Bowel Movements 1 Objective General: No acute distress, awake and alert HEENT: NCAT, sclera anicteric, PERRL, EOMI. Neck: Supple, no significant jugular venous distention, Lungs: Good inspiratory effort, no accessory muscle use, clear to auscultation bilaterally, no Wheeze Heart: Regular rate and rhythm, normal S1/S2, no murmurs Abdomen: soft, less epigastric tenderness, nondistended. Normoactive bowel sounds. / Rectal: Refused and deferred. Extremities: No Cyanosis , clubbing or edema. Neuro: A&O x 3, Able to move all extremities Skin: warm, no rashes or lesions Psych: Normal mood and affect Assessment/Plan Assessment/Plan 1. Abdominal pain, nausea, and vomiting most likely secondary to the acute on chronic pancreatitis. 2. Diabetes type 2 with early diabetic ketoacidosis. 3. Hypertension. 4. Hyperkalemia. 5. Metabolic acidosis. 6. Dyslipidemia. PLAN: 1. in monitored unit. 2. Broad-spectrum antibiotics: Zosyn. 3. Pain medication. 4. Keep the patient NPO except medications. 5. Dr. Lazaro consultation from GI. 6. Discussed with the family member extensively at bedside. 7. Pain medication. 8. Code status is Full Code. 9. DVT prophylaxis with heparin subcutaneous. MRCP: Impression: Suspected pancreatic ductal calculus described on recent CT scan is not confirmed on MRCP images. It is a possibility that that the calculus seen on CT was a periductal parenchymal calcification not within the duct. Another possibility is that the CT finding is real but occult on MRCP. Another possibility is that an intraductal calculus is present but mobile as there is a suggestion of a possible small calculus further upstream on one sequence, and near the ampulla further downstream on a second sequence. Mild extrahepatic biliary ductal dilatation again demonstrated, without evidence of downstream obstructive lesion. Evidence of prior cholecystectomy Peripancreatic edema consistent with acute pancreatitis, also previously described Splenic to portal vein collaterals in the left upper quadrant as well as perigastric varices. In retrospect, prior CT scan demonstrates occlusion, likely chronic, of the splenic vein Alexis Moscoso MD March 06, 2018 22:43
[2018-03-07] VITALS: BP 144/75
[2018-03-07 04:00] VITALS: BP 110/75
[2018-03-07] MEDS: Morphine Sulfate 4mg/ml Inj IVP PRN ×3 (05:29→19:48)
[2018-03-07] MEDS: Piperacillin/Tazobactam 3.375 GM in NS 110 ML IVPB SCH ×3 (05:35→21:05)
[2018-03-07] MEDS: NovoLOG Insulin Flexpen SUBQ SCH ×4 (06:08→21:08)
[2018-03-07 08:00] VITALS: BP 146/78
[2018-03-07 08:14] LABS: BASOPHILS % (AUTO) 0.5 % (0.0-2.0); EOSINOPHILS % (AUTO) 1.9 % (0.0-3.0); HEMATOCRIT 33.1 % (37.0-47.0); LYMPHOCYTES % (AUTO) 22.4 % (20.0-45.0); MEAN CORPUSCULAR VOLUME 85 FL (80-99); MONOCYTES % (AUTO) 4.7 % (1.0-10.0); NEUTROPHILS % (AUTO) 70.4 % (45.0-75.0); PLATELET COUNT 240 K/UL (150-450); RED BLOOD COUNT 3.88 M/UL (4.20-5.40); RED CELL DISTRIBUTION WIDTH 11.8 % (11.6-14.8); WHITE BLOOD COUNT 6.4 K/UL (4.8-10.8)
[2018-03-07 08:38] LABS: ALANINE AMINOTRANSFERASE 24 U/L (12-78); ALBUMIN 2.3 G/DL (3.4-5.0); ALBUMIN/GLOBULIN RATIO 0.6 (1.0-2.7); ALKALINE PHOSPHATASE 93 U/L (46-116); AMYLASE 289 U/L (25-115); ANION GAP 12 mmol/L (5-15); ASPARTATE AMINO TRANSFERASE 25 U/L (15-37); BILIRUBIN,TOTAL 0.3 MG/DL (0.2-1.0); BLOOD UREA NITROGEN 8 mg/dL (7-18); CARBON DIOXIDE 20 MMOL/L (21-32); CHLORIDE 105 MMOL/L (98-107); SODIUM 137 MMOL/L (136-145)
[2018-03-07 08:40] LABS: POTASSIUM 2.6 MMOL/L (3.5-5.1)
[2018-03-07 08:46] LABS: PHOSPHORUS 2.6 MG/DL (2.5-4.9)
[2018-03-07] MEDS: Heparin 5000 units/ml inj SUBQ SCH ×2 (09:01→21:08)
[2018-03-07 12:00] VITALS: BP 146/82
--- NOTE | 2018-03-07 12:52 | Internal Med Progress Note ---
Subjective Date of Service: March 07, 2018 Physician Name Claudio Reed Attending Physician Alexis Moscoso MD Current Medications Medications (Trade) Dose Ordered Sig/Shruti Route PRN Reason Start Time Stop Time Status Last Admin Dose Admin Acetaminophen (Tylenol) 650 mg Q4H PRN ORAL fever 03/05/18 19:45 04/04/18 19:44 Al Hydroxide/Mg Hydroxide (Mylanta II) 30 ml Q6H PRN ORAL dyspepsia 03/05/18 19:45 04/04/18 19:44 Clonidine HCl (Catapres Tab) 0.1 mg Q6H PRN ORAL For SBP>160 03/06/18 17:24 04/05/18 17:23 Dextrose (Dextrose 50%) STAT PRN IV Hypoglycemia 03/05/18 19:45 04/04/18 19:44 Diphenhydramine HCl (Benadryl) 25 mg Q6H PRN ORAL Itching/Pruritis 03/05/18 19:45 04/04/18 19:44 Heparin Sodium (Porcine) (Heparin 5000 units/ml) 5,000 units EVERY 12 HOURS SUBQ 03/05/18 21:00 04/04/18 20:59 03/07/18 09:01 Insulin Aspart (NovoLOG) BEFORE MEALS AND HS SUBQ 03/05/18 21:00 04/04/18 20:59 03/07/18 11:36 Ketorolac Tromethamine (Toradol 30mg) 30 mg Q6H PRN IV moderate pian 4-6 03/05/18 19:45 03/10/18 19:44 03/06/18 10:58 Magnesium Sulfate 100 ml @ 100 mls/hr Q1H IVPB 03/07/18 11:30 03/07/18 13:29 03/07/18 11:52 Morphine Sulfate (Morphine Sulfate) 2 mg Q4H PRN IVP For Severe Pain (7-10) 03/06/18 13:41 03/13/18 13:40 03/07/18 11:04 Nitroglycerin (Ntg) 0.4 mg Q5M X 3 DOSES PRN SL Prn Chest Pain 03/05/18 19:45 04/04/18 19:44 Ondansetron HCl (Zofran) 4 mg Q6H PRN IVP Nausea & Vomiting 03/05/18 19:45 04/04/18 19:44 Piperacillin Sod/ Tazobactam Sod 3.375 gm/Sodium Chloride 110 ml @ 27 mls/hr EVERY 8 HOURS IVPB 03/05/18 22:00 03/12/18 21:59 03/07/18 05:35 Polyethylene Glycol (Miralax) 17 gm HSPRN PRN ORAL Constipation 03/05/18 19:45 04/04/18 19:44 Potassium Chloride (K-Dur) 40 meq ONCE ONCE ORAL 03/07/18 16:00 03/07/18 16:01 Sodium Chloride 1,000 ml @ 100 mls/hr Q10H IV 03/06/18 20:45 04/04/18 20:44 03/06/18 19:57 Temazepam (Restoril) 15 mg HSPRN PRN ORAL Insomnia 03/05/18 19:45 03/12/18 19:44 Allergies: Coded Allergies: SULFAMETHOXAZOLE (Verified Allergy, Unknown, SWELLING, 03/05/18) TRIMETHOPRIM (Verified Allergy, Unknown, SWELLING, 03/05/18) Constitutional: Reports: no symptoms HEENT: Reports: no symptoms Cardiovascular: Reports: no symptoms Respiratory: Reports: no symptoms Gastrointestinal/Abdominal: Reports: abdominal pain, nausea, vomiting Neurologic/Psychiatric: Reports: no symptoms Subjective 53 YO F admitted with Abdominal pain, nausea and vomiting. Now acute pancreatitis. Cover for Int Les-Dr Moscoso Objective Last Vital Signs Date Time Temp Pulse Resp B/P (MAP) Pulse Ox O2 Delivery O2 Flow Rate FiO2 03/07/18 12:00 98.1 68 18 146/82 99 Room Air 98.1 Laboratory Tests Test 03/07/18 08:00 White Blood Count 6.4 K/UL (4.8-10.8) Red Blood Count 3.88 M/UL (4.20-5.40) L Hemoglobin 11.0 G/DL (12.0-16.0) L Hematocrit 33.1 % (37.0-47.0) L Mean Corpuscular Volume 85 FL (80-99) Mean Corpuscular Hemoglobin 28.4 PG (27.0-31.0) Mean Corpuscular Hemoglobin Concent 33.3 G/DL (32.0-36.0) Red Cell Distribution Width 11.8 % (11.6-14.8) Platelet Count 240 K/UL (150-450) Mean Platelet Volume 7.3 FL (6.5-10.1) Neutrophils (%) (Auto) 70.4 % (45.0-75.0) Lymphocytes (%) (Auto) 22.4 % (20.0-45.0) Monocytes (%) (Auto) 4.7 % (1.0-10.0) Eosinophils (%) (Auto) 1.9 % (0.0-3.0) Basophils (%) (Auto) 0.5 % (0.0-2.0) Erythrocyte Sedimentation Rate 60 MM/HR (0-30) H Sodium Level 137 MMOL/L (136-145) Potassium Level 2.6 MMOL/L (3.5-5.1) *L Chloride Level 105 MMOL/L (98-107) Carbon Dioxide Level 20 MMOL/L (21-32) L Anion Gap 12 mmol/L (5-15) Blood Urea Nitrogen 8 mg/dL (7-18) Creatinine 1.0 MG/DL (0.55-1.30) Estimat Glomerular Filtration Rate 58.2 mL/min (>60) Glucose Level 176 MG/DL (74-106) #H Calcium Level 8.0 MG/DL (8.5-10.1) L Phosphorus Level 2.6 MG/DL (2.5-4.9) Magnesium Level 1.5 MG/DL (1.8-2.4) L Total Bilirubin 0.3 MG/DL (0.2-1.0) Aspartate Amino Transf (AST/SGOT) 25 U/L (15-37) Alanine Aminotransferase (ALT/SGPT) 24 U/L (12-78) Alkaline Phosphatase 93 U/L (46-116) C-Reactive Protein, Quantitative 1.8 mg/dL (0.00-0.90) H Total Protein 6.3 G/DL (6.4-8.2) L Albumin 2.3 G/DL (3.4-5.0) L Globulin 4.0 g/dL Albumin/Globulin Ratio 0.6 (1.0-2.7) L Amylase Level 289 U/L (25-115) H Lipase 1228 U/L (73-393) H Microbiology Date/Time Source Procedure Growth Status 03/05/18 17:40 Blood Blood Culture - Preliminary NO GROWTH AFTER 24 HOURS Resulted 03/05/18 17:14 Blood Blood Culture - Preliminary NO GROWTH AFTER 24 HOURS Resulted 03/06/18 10:55 Stool Clostridium difficile Toxin Assay - Final Complete 03/05/18 14:50 Urine,Clean Catch Urine Culture - Final Escherichia Coli Complete Intake and Output 03/06/18 03/07/18 19:00 07:00 Intake Total 950 ml 1140 ml Balance 950 ml 1140 ml Intake Oral 850 ml 240 ml IV Total 100 ml 900 ml # Voids 4 2 # Bowel Movements 2 Objective Objective General: No acute distress, awake and alert HEENT: NCAT, sclera anicteric, PERRL, EOMI. Neck: Supple, no significant jugular venous distention, Lungs: Good inspiratory effort, no accessory muscle use, clear to auscultation bilaterally, no Wheeze Heart: Regular rate and rhythm, normal S1/S2, no murmurs Abdomen: soft, less epigastric tenderness, nondistended. Normoactive bowel sounds. / Rectal: Refused and deferred. Extremities: No Cyanosis , clubbing or edema. Neuro: A&O x 3, Able to move all extremities Skin: warm, no rashes or lesions Psych: Normal mood and affect Assessment/Plan Problem List: (1) Nausea and vomiting Assessment & Plan: Secondary to pancreatitis. Continue zofran (2) Epigastric abdominal pain (3) Diabetes mellitus Assessment & Plan: Continue novolog sliding scale. (4) HTN (hypertension) Assessment & Plan: Continue prn clonidine (5) Hypercholesteremia (6) Common bile duct dilatation (7) Acute pancreatitis Assessment & Plan: Tolerating PO diet. See GI note. Await possible ERCP (8) Hypokalemia Assessment & Plan: Replace potassium Status: not improved Claudio Reed MD March 07, 2018 12:52
--- NOTE | 2018-03-07 13:14 | General Progress Note ---
Assessment/Plan Problem List: (1) HTN (hypertension) ICD Codes: I10 - Essential (primary) hypertension SNOMED: 95470675 (2) Nausea and vomiting ICD Codes: R11.2 - Nausea with vomiting, unspecified SNOMED: 01659883 (3) Pancreatitis ICD Codes: K85.90 - Acute pancreatitis without necrosis or infection, unspecified SNOMED: 67789096 Qualifiers: Qualified Codes: K85.10 - Biliary acute pancreatitis without necrosis or infection Assessment/Plan chronic pancreatitis no ETOH s/p cholecystectomy advance diet fu labs lipid panel khoa, IGg sub class 4 Subjective ROS Limited/Unobtainable: Yes Allergies: Coded Allergies: SULFAMETHOXAZOLE (Verified Allergy, Unknown, SWELLING, 03/05/18) TRIMETHOPRIM (Verified Allergy, Unknown, SWELLING, 03/05/18) Subjective abd pain is better Objective Last 24 Hour Vital Signs Date Time Temp Pulse Resp B/P (MAP) Pulse Ox O2 Delivery O2 Flow Rate FiO2 03/07/18 12:00 98.1 68 18 146/82 99 Room Air 98.1 03/07/18 08:00 97.5 75 18 146/78 97 Room Air 97.5 03/07/18 04:00 97.7 65 20 110/75 99 Room Air 97.7 03/07/18 04:00 66 03/07/18 00:00 65 03/07/18 00:00 98.2 74 20 144/75 100 Room Air 98.2 03/06/18 20:00 98.2 62 20 152/76 99 Room Air 98.2 03/06/18 20:00 68 03/06/18 16:00 98.0 66 20 162/78 99 Room Air 98.0 03/06/18 16:00 64 Intake and Output 03/06/18 03/07/18 19:00 07:00 Intake Total 950 ml 1140 ml Balance 950 ml 1140 ml Intake Oral 850 ml 240 ml IV Total 100 ml 900 ml # Voids 4 2 # Bowel Movements 2 Laboratory Tests 03/07/18 08:00: White Blood Count 6.4, Red Blood Count 3.88L, Hemoglobin 11.0L, Hematocrit 33.1L , Mean Corpuscular Volume 85, Mean Corpuscular Hemoglobin 28.4, Mean Corpuscular Hemoglobin Concent 33.3, Red Cell Distribution Width 11.8, Platelet Count 240, Mean Platelet Volume 7.3, Neutrophils (%) (Auto) 70.4, Lymphocytes (% ) (Auto) 22.4, Monocytes (%) (Auto) 4.7, Eosinophils (%) (Auto) 1.9, Basophils ( %) (Auto) 0.5, Erythrocyte Sedimentation Rate 60H, Sodium Level 137, Potassium Level 2.6*L, Chloride Level 105, Carbon Dioxide Level 20L, Anion Gap 12, Blood Urea Nitrogen 8, Creatinine 1.0, Estimat Glomerular Filtration Rate 58.2, Glucose Level 176#H, Calcium Level 8.0L, Phosphorus Level 2.6, Magnesium Level 1.5L, Total Bilirubin 0.3, Aspartate Amino Transf (AST/SGOT) 25, Alanine Aminotransferase (ALT/SGPT) 24, Alkaline Phosphatase 93, C-Reactive Protein, Quantitative 1.8H, Total Protein 6.3L, Albumin 2.3L, Globulin 4.0, Albumin/ Globulin Ratio 0.6L, Amylase Level 289H, Lipase 1228H Height (Feet): 5 Height (Inches): 4.00 Weight (Pounds): 116 General Appearance: alert EENT: normal ENT inspection Neck: supple Cardiovascular: normal rate Respiratory/Chest: lungs clear Abdomen: soft, hypoactive bowel sounds, tender Extremities: non-tender Edwar Lazaro MD March 07, 2018 13:14
[2018-03-07] MEDS: NS w/KCl 20mEq 1,000 ML IV SCH (14:14)
[2018-03-07 16:00] VITALS: BP 139/77
[2018-03-07] MEDS ORDERED: Pancrease Cap ORAL SCH (18:00)
[2018-03-07] MEDS: Pancrease Cap ORAL SCH (18:11)
[2018-03-07 20:00] VITALS: BP 156/78
[2018-03-07] MEDS: Ketorolac 30mg Inj IV PRN (22:52)
[2018-03-08] VITALS: BP 150/86
[2018-03-08] MEDS: Morphine Sulfate 4mg/ml Inj IVP PRN ×2 (00:29→23:56)
[2018-03-08 04:00] VITALS: BP 152/80
[2018-03-08] MEDS: Piperacillin/Tazobactam 3.375 GM in NS 110 ML IVPB SCH (05:19)
[2018-03-08] MEDS: NovoLOG Insulin Flexpen SUBQ SCH ×4 (06:37→20:57)
[2018-03-08 08:00] VITALS: BP 139/82
[2018-03-08 08:38] LABS: BASOPHILS % (AUTO) 1.3 % (0.0-2.0); EOSINOPHILS % (AUTO) 2.6 % (0.0-3.0); HEMATOCRIT 32.6 % (37.0-47.0); HEMOGLOBIN 11.4 G/DL (12.0-16.0); LYMPHOCYTES % (AUTO) 39.1 % (20.0-45.0); MEAN CORPUSCULAR VOLUME 85 FL (80-99); MONOCYTES % (AUTO) 5.8 % (1.0-10.0); NEUTROPHILS % (AUTO) 51.3 % (45.0-75.0); PLATELET COUNT 216 K/UL (150-450); RED BLOOD COUNT 3.85 M/UL (4.20-5.40); RED CELL DISTRIBUTION WIDTH 11.8 % (11.6-14.8); WHITE BLOOD COUNT 4.8 K/UL (4.8-10.8)
[2018-03-08] MEDS: NS w/KCl 20mEq 1,000 ML IV SCH ×2 (08:48→16:15)
[2018-03-08] MEDS: Pancrease Cap ORAL SCH ×3 (08:48→17:12)
[2018-03-08] MEDS: Heparin 5000 units/ml inj SUBQ SCH ×2 (08:50→20:51)
[2018-03-08 09:22] LABS: ALANINE AMINOTRANSFERASE 36 U/L (12-78); ALBUMIN 2.3 G/DL (3.4-5.0); ALBUMIN/GLOBULIN RATIO 0.6 (1.0-2.7); ALKALINE PHOSPHATASE 119 U/L (46-116); AMYLASE 164 U/L (25-115); ANION GAP 10 mmol/L (5-15); ASPARTATE AMINO TRANSFERASE 58 U/L (15-37); BILIRUBIN,TOTAL 0.3 MG/DL (0.2-1.0); BLOOD UREA NITROGEN 6 mg/dL (7-18); CALCIUM 8.4 MG/DL (8.5-10.1); CARBON DIOXIDE 22 MMOL/L (21-32); CHLORIDE 104 MMOL/L (98-107); CHOLESTEROL 185 MG/DL (< 200); CREATININE 1.1 MG/DL (0.55-1.30); HDL CHOLESTEROL 26 MG/DL (40-60); SODIUM 136 MMOL/L (136-145); TRIGLYCERIDES 327 MG/DL (30-150)
[2018-03-08] MEDS ORDERED: Tubing IV Secondary IV ONE (09:48)
--- NOTE | 2018-03-08 10:31 | General Progress Note ---
Assessment/Plan Problem List: (1) HTN (hypertension) ICD Codes: I10 - Essential (primary) hypertension SNOMED: 24137508 (2) Nausea and vomiting ICD Codes: R11.2 - Nausea with vomiting, unspecified SNOMED: 85267641 (3) Pancreatitis ICD Codes: K85.90 - Acute pancreatitis without necrosis or infection, unspecified SNOMED: 76201697 Qualifiers: Qualified Codes: K85.10 - Biliary acute pancreatitis without necrosis or infection Assessment/Plan chronic pancreatitis no ETOH s/p cholecystectomy creon fu labs>>> improving lipid panel khoa, IGg sub class 4 Subjective ROS Limited/Unobtainable: Yes Allergies: Coded Allergies: SULFAMETHOXAZOLE (Verified Allergy, Unknown, SWELLING, 03/05/18) TRIMETHOPRIM (Verified Allergy, Unknown, SWELLING, 03/05/18) Subjective abd pain is better Objective Last 24 Hour Vital Signs Date Time Temp Pulse Resp B/P (MAP) Pulse Ox O2 Delivery O2 Flow Rate FiO2 03/08/18 08:00 98.2 60 18 139/82 100 Room Air 98.2 03/08/18 04:43 98.1 03/08/18 04:00 58 03/08/18 04:00 97.0 60 22 152/80 99 Room Air 97.0 03/08/18 00:00 98.1 63 20 150/86 99 Room Air 98.1 03/08/18 00:00 63 03/07/18 20:00 98.4 68 20 156/78 98 Room Air 98.4 03/07/18 20:00 69 03/07/18 16:00 60 03/07/18 16:00 97.9 58 12 139/77 99 Room Air 97.9 03/07/18 12:00 98.1 68 18 146/82 99 Room Air 98.1 03/07/18 12:00 68 Intake and Output 03/07/18 03/08/18 19:00 07:00 Intake Total 410 ml 500 ml Balance 410 ml 500 ml Intake Oral 360 ml IV Total 50 ml 500 ml # Voids 3 2 Laboratory Tests 03/08/18 07:45: White Blood Count 4.8, Red Blood Count 3.85L, Hemoglobin 11.4L, Hematocrit 32.6L , Mean Corpuscular Volume 85, Mean Corpuscular Hemoglobin 29.5, Mean Corpuscular Hemoglobin Concent 34.9, Red Cell Distribution Width 11.8, Platelet Count 216, Mean Platelet Volume 7.0, Neutrophils (%) (Auto) 51.3, Lymphocytes (% ) (Auto) 39.1, Monocytes (%) (Auto) 5.8, Eosinophils (%) (Auto) 2.6, Basophils ( %) (Auto) 1.3, Sodium Level 136, Potassium Level 3.0L, Chloride Level 104, Carbon Dioxide Level 22, Anion Gap 10, Blood Urea Nitrogen 6L, Creatinine 1.1, Estimat Glomerular Filtration Rate 52.2, Glucose Level 241H, Calcium Level 8.4L , Total Bilirubin 0.3, Aspartate Amino Transf (AST/SGOT) 58H, Alanine Aminotransferase (ALT/SGPT) 36, Alkaline Phosphatase 119H, Total Protein 6.3L, Albumin 2.3L, Globulin 4.0, Albumin/Globulin Ratio 0.6L, Triglycerides Level 327H, Cholesterol Level 185, LDL Cholesterol 103H, HDL Cholesterol 26L, Cholesterol/HDL Ratio 7.1H, Amylase Level 164H, Lipase 552H, Immunoglobulin G [ Pending], Immunoglobulin G1 [Pending], Immunoglobulin G2 [Pending], Immunoglobulin G3 [Pending], Immunoglobulin G4 [Pending] Height (Feet): 5 Height (Inches): 4.00 Weight (Pounds): 116 General Appearance: alert EENT: normal ENT inspection Neck: supple Cardiovascular: normal rate Respiratory/Chest: lungs clear Abdomen: soft, decreased bowel sounds, tender Extremities: non-tender Edwar Lazaro MD March 08, 2018 10:31
[2018-03-08] MEDS: Ketorolac 30mg Inj IV PRN ×2 (11:44→20:47)
[2018-03-08] MEDS ORDERED: cefTRIAXone 1 GM in D5W 110 ML IVPB SCH (12:00)
[2018-03-08 12:12] VITALS: BP 123/76
--- NOTE | 2018-03-08 15:30 | Internal Med Progress Note ---
Subjective Date of Service: March 08, 2018 Physician Name Reed,Claudio Attending Physician Alexis Moscoso MD Current Medications Medications (Trade) Dose Ordered Sig/Shruti Route PRN Reason Start Time Stop Time Status Last Admin Dose Admin Acetaminophen (Tylenol) 650 mg Q4H PRN ORAL fever 03/05/18 19:45 04/04/18 19:44 03/08/18 03:44 Al Hydroxide/Mg Hydroxide (Mylanta II) 30 ml Q6H PRN ORAL dyspepsia 03/05/18 19:45 04/04/18 19:44 Amylase/Lipase/ Protease (Pancrease) 2 ea THREE TIMES A DAY ORAL 03/07/18 18:00 04/06/18 17:59 03/08/18 12:30 Ceftriaxone Sodium 1 gm/ Dextrose 110 ml @ 220 mls/hr Q24H IVPB 03/08/18 12:00 03/15/18 11:59 03/08/18 11:41 Clonidine HCl (Catapres Tab) 0.1 mg Q6H PRN ORAL For SBP>160 03/06/18 17:24 04/05/18 17:23 Dextrose (Dextrose 50%) STAT PRN IV Hypoglycemia 03/05/18 19:45 04/04/18 19:44 Diphenhydramine HCl (Benadryl) 25 mg Q6H PRN ORAL Itching/Pruritis 03/05/18 19:45 04/04/18 19:44 03/08/18 03:49 Heparin Sodium (Porcine) (Heparin 5000 units/ml) 5,000 units EVERY 12 HOURS SUBQ 03/05/18 21:00 04/04/18 20:59 03/08/18 08:50 Insulin Aspart (NovoLOG) BEFORE MEALS AND HS SUBQ 03/05/18 21:00 04/04/18 20:59 03/08/18 11:42 Ketorolac Tromethamine (Toradol 30mg) 30 mg Q6H PRN IV moderate pian 4-6 03/05/18 19:45 03/10/18 19:44 03/08/18 11:44 Morphine Sulfate (Morphine Sulfate) 2 mg Q4H PRN IVP For Severe Pain (7-10) 03/06/18 13:41 03/13/18 13:40 03/08/18 00:29 Nitroglycerin (Ntg) 0.4 mg Q5M X 3 DOSES PRN SL Prn Chest Pain 03/05/18 19:45 04/04/18 19:44 Ondansetron HCl (Zofran) 4 mg Q6H PRN IVP Nausea & Vomiting 03/05/18 19:45 04/04/18 19:44 Polyethylene Glycol (Miralax) 17 gm HSPRN PRN ORAL Constipation 03/05/18 19:45 04/04/18 19:44 Potassium Chloride (K-Dur) 40 meq Q6H ORAL 03/08/18 11:30 03/09/18 05:31 03/08/18 11:43 Sodium Chloride 1,000 ml @ 50 mls/hr Q20H IV 03/07/18 13:30 04/06/18 13:29 03/08/18 08:48 Temazepam (Restoril) 15 mg HSPRN PRN ORAL Insomnia 03/05/18 19:45 03/12/18 19:44 Allergies: Coded Allergies: SULFAMETHOXAZOLE (Verified Allergy, Unknown, SWELLING, 03/05/18) TRIMETHOPRIM (Verified Allergy, Unknown, SWELLING, 03/05/18) ROS Limited/Unobtainable: No Constitutional: Reports: no symptoms HEENT: Reports: no symptoms Cardiovascular: Reports: no symptoms Gastrointestinal/Abdominal: Reports: abdominal pain Neurologic/Psychiatric: Reports: no symptoms Subjective 53 YO F admitted with Abdominal pain, nausea and vomiting. Now acute pancreatitis. Cover for Int Les-Dr Moscoso Objective Last Vital Signs Date Time Temp Pulse Resp B/P (MAP) Pulse Ox O2 Delivery O2 Flow Rate FiO2 03/08/18 12:15 97.2 03/08/18 12:12 56 18 123/76 97 Room Air Laboratory Tests Test 03/08/18 07:45 White Blood Count 4.8 K/UL (4.8-10.8) Red Blood Count 3.85 M/UL (4.20-5.40) L Hemoglobin 11.4 G/DL (12.0-16.0) L Hematocrit 32.6 % (37.0-47.0) L Mean Corpuscular Volume 85 FL (80-99) Mean Corpuscular Hemoglobin 29.5 PG (27.0-31.0) Mean Corpuscular Hemoglobin Concent 34.9 G/DL (32.0-36.0) Red Cell Distribution Width 11.8 % (11.6-14.8) Platelet Count 216 K/UL (150-450) Mean Platelet Volume 7.0 FL (6.5-10.1) Neutrophils (%) (Auto) 51.3 % (45.0-75.0) Lymphocytes (%) (Auto) 39.1 % (20.0-45.0) Monocytes (%) (Auto) 5.8 % (1.0-10.0) Eosinophils (%) (Auto) 2.6 % (0.0-3.0) Basophils (%) (Auto) 1.3 % (0.0-2.0) Sodium Level 136 MMOL/L (136-145) Potassium Level 3.0 MMOL/L (3.5-5.1) L Chloride Level 104 MMOL/L (98-107) Carbon Dioxide Level 22 MMOL/L (21-32) Anion Gap 10 mmol/L (5-15) Blood Urea Nitrogen 6 mg/dL (7-18) L Creatinine 1.1 MG/DL (0.55-1.30) Estimat Glomerular Filtration Rate 52.2 mL/min (>60) Glucose Level 241 MG/DL (74-106) H Calcium Level 8.4 MG/DL (8.5-10.1) L Total Bilirubin 0.3 MG/DL (0.2-1.0) Aspartate Amino Transf (AST/SGOT) 58 U/L (15-37) H Alanine Aminotransferase (ALT/SGPT) 36 U/L (12-78) Alkaline Phosphatase 119 U/L (46-116) H Total Protein 6.3 G/DL (6.4-8.2) L Albumin 2.3 G/DL (3.4-5.0) L Globulin 4.0 g/dL Albumin/Globulin Ratio 0.6 (1.0-2.7) L Triglycerides Level 327 MG/DL (30-150) H Cholesterol Level 185 MG/DL (< 200) LDL Cholesterol 103 mg/dL (<100) H HDL Cholesterol 26 MG/DL (40-60) L Cholesterol/HDL Ratio 7.1 (3.3-4.4) H Amylase Level 164 U/L (25-115) H Lipase 552 U/L (73-393) H Immunoglobulin G Pending Immunoglobulin G1 Pending Immunoglobulin G2 Pending Immunoglobulin G3 Pending Immunoglobulin G4 Pending Microbiology Date/Time Source Procedure Growth Status 03/05/18 17:40 Blood Blood Culture - Preliminary NO GROWTH AFTER 48 HOURS Resulted 03/05/18 17:14 Blood Blood Culture - Preliminary NO GROWTH AFTER 48 HOURS Resulted 03/06/18 10:55 Stool Clostridium difficile Toxin Assay - Final Complete Intake and Output 03/07/18 03/08/18 19:00 07:00 Intake Total 410 ml 550 ml Balance 410 ml 550 ml Intake Oral 360 ml IV Total 50 ml 550 ml # Voids 3 2 Objective Objective General: No acute distress, awake and alert HEENT: NCAT, sclera anicteric, PERRL, EOMI. Neck: Supple, no significant jugular venous distention, Lungs: Good inspiratory effort, no accessory muscle use, clear to auscultation bilaterally, no Wheeze Heart: Regular rate and rhythm, normal S1/S2, no murmurs Abdomen: soft, less epigastric tenderness, nondistended. Normoactive bowel sounds. / Rectal: Refused and deferred. Extremities: No Cyanosis , clubbing or edema. Neuro: A&O x 3, Able to move all extremities Skin: warm, no rashes or lesions Psych: Normal mood and affect Assessment/Plan Problem List: (1) Nausea and vomiting Assessment & Plan: Secondary to pancreatitis. Continue zofran (2) Epigastric abdominal pain (3) Diabetes mellitus Assessment & Plan: Continue novolog sliding scale. (4) HTN (hypertension) Assessment & Plan: Continue prn clonidine (5) Hypercholesteremia (6) Common bile duct dilatation (7) Acute pancreatitis Assessment & Plan: Tolerating PO diet. See GI note. Await possible ERCP (8) Hypokalemia Assessment & Plan: Replace potassium Status: not improved Claudio Reed MD March 08, 2018 15:30
[2018-03-08] MEDS ORDERED: Nitroglycerin Subl 0.4mg tab SL PRN (16:15)
[2018-03-08 16:41] VITALS: BP 148/88
[2018-03-08] MEDS ORDERED: Mylanta II UD 30ml ORAL PRN (17:00)
[2018-03-08 20:00] VITALS: BP_SYST 111; BP_SYST 149; BP_DIAS 61; BP_DIAS 87
[2018-03-08] MEDS ORDERED: Miralax 17gm pkt ORAL PRN (21:00)
[2018-03-09 00:45] VITALS: BP 154/86
[2018-03-09 04:00] VITALS: BP 141/79
[2018-03-09] MEDS: Ketorolac 30mg Inj IV PRN (05:14)
[2018-03-09] MEDS: NovoLOG Insulin Flexpen SUBQ SCH ×3 (06:02→16:55)
[2018-03-09] MEDS: Morphine Sulfate 4mg/ml Inj IVP PRN (07:38)
[2018-03-09 08:00] VITALS: BP 151/88
[2018-03-09 08:27] LABS: BASOPHILS % (AUTO) 0.9 % (0.0-2.0); EOSINOPHILS % (AUTO) 2.2 % (0.0-3.0); HEMATOCRIT 35.1 % (37.0-47.0); HEMOGLOBIN 11.8 G/DL (12.0-16.0); LYMPHOCYTES % (AUTO) 41.4 % (20.0-45.0); MEAN CORPUSCULAR VOLUME 86 FL (80-99); NEUTROPHILS % (AUTO) 50.4 % (45.0-75.0); PLATELET COUNT 248 K/UL (150-450); RED BLOOD COUNT 4.06 M/UL (4.20-5.40); RED CELL DISTRIBUTION WIDTH 12.3 % (11.6-14.8)
[2018-03-09] MEDS: Pancrease Cap ORAL SCH ×2 (08:39→13:02)
[2018-03-09 08:41] LABS: ALANINE AMINOTRANSFERASE 29 U/L (12-78); ALBUMIN 2.4 G/DL (3.4-5.0); ALBUMIN/GLOBULIN RATIO 0.6 (1.0-2.7); ALKALINE PHOSPHATASE 112 U/L (46-116); AMYLASE 154 U/L (25-115); ANION GAP 9 mmol/L (5-15); ASPARTATE AMINO TRANSFERASE 30 U/L (15-37); BILIRUBIN,TOTAL 0.2 MG/DL (0.2-1.0); BLOOD UREA NITROGEN 9 mg/dL (7-18); CALCIUM 8.7 MG/DL (8.5-10.1); CARBON DIOXIDE 21 MMOL/L (21-32); CHLORIDE 105 MMOL/L (98-107); CREATININE 1.1 MG/DL (0.55-1.30); POTASSIUM 4.8 MMOL/L (3.5-5.1); SODIUM 135 MMOL/L (136-145)
[2018-03-09] MEDS: Heparin 5000 units/ml inj SUBQ SCH (08:45)
[2018-03-09 09:11] LABS: PHOSPHORUS 2.7 MG/DL (2.5-4.9)
--- NOTE | 2018-03-09 11:18 | Internal Med Progress Note ---
Subjective Date of Service: March 09, 2018 Physician Name ReedClaudio Attending Physician Alexis Moscoso MD Current Medications Medications (Trade) Dose Ordered Sig/Shruti Route PRN Reason Start Time Stop Time Status Last Admin Dose Admin Acetaminophen (Tylenol) 650 mg Q4H PRN ORAL T>100.5 03/08/18 17:00 04/04/18 16:59 Al Hydroxide/Mg Hydroxide (Mylanta II) 30 ml Q6H PRN ORAL dyspepsia 03/08/18 17:00 04/04/18 16:59 Amylase/Lipase/ Protease (Pancrease) 2 ea THREE TIMES A DAY ORAL 03/08/18 18:00 04/06/18 17:59 03/09/18 08:39 Ceftriaxone Sodium 1 gm/ Dextrose 110 ml @ 220 mls/hr Q24H IVPB 03/09/18 12:00 03/15/18 11:59 Clonidine HCl (Catapres Tab) 0.1 mg Q6H PRN ORAL For SBP>160 03/08/18 17:30 04/05/18 17:23 Dextrose (Dextrose 50%) 25 ml PRN IV Hypoglycemia 03/08/18 16:15 04/07/18 16:14 Dextrose (Dextrose 50%) 50 ml PRN IV hypoglycemia 03/08/18 16:15 04/07/18 16:14 Diphenhydramine HCl (Benadryl) 25 mg Q6H PRN ORAL Itching/Pruritis 03/08/18 17:00 04/04/18 16:59 Heparin Sodium (Porcine) (Heparin 5000 units/ml) 5,000 units EVERY 12 HOURS SUBQ 03/08/18 21:00 04/04/18 20:59 03/09/18 08:45 Insulin Aspart (NovoLOG) BEFORE MEALS AND HS SUBQ 03/08/18 17:30 04/04/18 17:29 03/09/18 06:02 Ketorolac Tromethamine (Toradol 30mg) 30 mg Q6H PRN IV Moderate Pain (Pain Scale 4-6) 03/08/18 17:00 03/10/18 16:59 03/09/18 05:14 Morphine Sulfate (Morphine Sulfate) 2 mg Q4H PRN IVP For Severe Pain (7-10) 03/08/18 17:00 03/13/18 16:59 03/09/18 07:38 Nitroglycerin (Ntg) 0.4 mg Q5M X 3 DOSES PRN SL Prn Chest Pain 03/08/18 16:15 04/04/18 19:44 Ondansetron HCl (Zofran) 4 mg Q6H PRN IVP Nausea & Vomiting 03/08/18 17:00 04/04/18 16:59 Polyethylene Glycol (Miralax) 17 gm HSPRN PRN ORAL Constipation 03/08/18 21:00 04/04/18 20:59 Sodium Chloride 1,000 ml @ 50 mls/hr Q20H IV 03/08/18 16:15 04/06/18 13:29 Temazepam (Restoril) 15 mg HSPRN PRN ORAL Insomnia 03/08/18 21:00 03/12/18 20:59 Allergies: Coded Allergies: SULFAMETHOXAZOLE (Verified Allergy, Unknown, SWELLING, 03/05/18) TRIMETHOPRIM (Verified Allergy, Unknown, SWELLING, 03/05/18) ROS Limited/Unobtainable: No Constitutional: Reports: no symptoms HEENT: Reports: no symptoms Cardiovascular: Reports: no symptoms Respiratory: Reports: no symptoms Gastrointestinal/Abdominal: Reports: no symptoms Genitourinary: Reports: no symptoms Neurologic/Psychiatric: Reports: no symptoms Subjective 53 YO F admitted with Abdominal pain, nausea and vomiting. Now acute pancreatitis. Cover for Int Med-Dr Moscoso. Tolerating PO Objective Last Vital Signs Date Time Temp Pulse Resp B/P (MAP) Pulse Ox O2 Delivery O2 Flow Rate FiO2 03/09/18 08:08 97.9 03/09/18 08:00 65 20 151/88 100 Room Air Laboratory Tests Test 03/09/18 05:20 White Blood Count 5.0 K/UL (4.8-10.8) Red Blood Count 4.06 M/UL (4.20-5.40) L Hemoglobin 11.8 G/DL (12.0-16.0) L Hematocrit 35.1 % (37.0-47.0) L Mean Corpuscular Volume 86 FL (80-99) Mean Corpuscular Hemoglobin 29.1 PG (27.0-31.0) Mean Corpuscular Hemoglobin Concent 33.7 G/DL (32.0-36.0) Red Cell Distribution Width 12.3 % (11.6-14.8) Platelet Count 248 K/UL (150-450) Mean Platelet Volume 6.3 FL (6.5-10.1) L Neutrophils (%) (Auto) 50.4 % (45.0-75.0) Lymphocytes (%) (Auto) 41.4 % (20.0-45.0) Monocytes (%) (Auto) 5.0 % (1.0-10.0) Eosinophils (%) (Auto) 2.2 % (0.0-3.0) Basophils (%) (Auto) 0.9 % (0.0-2.0) Sodium Level 135 MMOL/L (136-145) L Potassium Level 4.8 MMOL/L (3.5-5.1) # Chloride Level 105 MMOL/L (98-107) Carbon Dioxide Level 21 MMOL/L (21-32) Anion Gap 9 mmol/L (5-15) Blood Urea Nitrogen 9 mg/dL (7-18) Creatinine 1.1 MG/DL (0.55-1.30) Estimat Glomerular Filtration Rate 52.2 mL/min (>60) Glucose Level 249 MG/DL (74-106) H Calcium Level 8.7 MG/DL (8.5-10.1) Phosphorus Level 2.7 MG/DL (2.5-4.9) Magnesium Level 1.8 MG/DL (1.8-2.4) Total Bilirubin 0.2 MG/DL (0.2-1.0) Aspartate Amino Transf (AST/SGOT) 30 U/L (15-37) Alanine Aminotransferase (ALT/SGPT) 29 U/L (12-78) Alkaline Phosphatase 112 U/L (46-116) Total Protein 6.7 G/DL (6.4-8.2) Albumin 2.4 G/DL (3.4-5.0) L Globulin 4.3 g/dL Albumin/Globulin Ratio 0.6 (1.0-2.7) L Amylase Level 154 U/L (25-115) H Lipase 454 U/L (73-393) H Intake and Output 03/08/18 03/09/18 19:00 07:00 Intake Total 740 ml 300 ml Balance 740 ml 300 ml Intake Oral 480 ml 300 ml IV Total 260 ml # Voids 3 1 Objective Objective General: No acute distress, awake and alert HEENT: NCAT, sclera anicteric, PERRL, EOMI. Neck: Supple, no significant jugular venous distention, Lungs: Good inspiratory effort, no accessory muscle use, clear to auscultation bilaterally, no Wheeze Heart: Regular rate and rhythm, normal S1/S2, no murmurs Abdomen: soft, less epigastric tenderness, nondistended. Normoactive bowel sounds. / Rectal: Refused and deferred. Extremities: No Cyanosis , clubbing or edema. Neuro: A&O x 3, Able to move all extremities Skin: warm, no rashes or lesions Psych: Normal mood and affect Assessment/Plan Problem List: (1) Nausea and vomiting Assessment & Plan: Secondary to pancreatitis. Continue zofran (2) Epigastric abdominal pain (3) Diabetes mellitus Assessment & Plan: Continue novolog sliding scale. (4) HTN (hypertension) Assessment & Plan: Continue prn clonidine (5) Hypercholesteremia (6) Common bile duct dilatation (7) Acute pancreatitis Assessment & Plan: Tolerating PO diet. See GI note. (8) Hypokalemia Assessment & Plan: Replace potassium Status: stable Assessment/Plan D/C Home today Claudio Reed MD March 09, 2018 11:18
--- NOTE | 2018-03-09 11:19 | GI Progress Note ---
Assessment/Plan Problems: (1) Common bile duct dilatation ICD Codes: K83.8 - Other specified diseases of biliary tract SNOMED: 327715188 (2) Nausea and vomiting ICD Codes: R11.2 - Nausea with vomiting, unspecified SNOMED: 09839750 (3) Epigastric abdominal pain ICD Codes: R10.13 - Epigastric pain SNOMED: 26376135 (4) Diabetes mellitus ICD Codes: E11.9 - Type 2 diabetes mellitus without complications SNOMED: 29943440 (5) Acute pancreatitis ICD Codes: K85.90 - Acute pancreatitis without necrosis or infection, unspecified SNOMED: 536987143 Status: progressing Status Narrative Discussed with Dr. Lazaro. Assessment/Plan chronic pancreatitis no ETOH s/p cholecystectomy hypertriglyceridemia adv diet pain mgmt creon lipid panel khoa, IGg sub class 4 gemfibrozil fu labs>>> improving Subjective Gastrointestinal/Abdominal: Reports: abdominal pain - improving Objective Last 24 Hour Vital Signs Date Time Temp Pulse Resp B/P (MAP) Pulse Ox O2 Delivery O2 Flow Rate FiO2 03/09/18 08:08 97.9 03/09/18 08:00 98.1 65 20 151/88 100 Room Air 98.1 03/09/18 07:38 97.9 03/09/18 04:00 97.9 64 20 141/79 100 97.9 03/09/18 00:45 96.3 65 20 154/86 99 Room Air 96.3 03/08/18 20:00 97.7 66 21 111/61 100 97.7 03/08/18 20:00 97.3 99 20 149/87 100 97.3 03/08/18 16:41 97.7 66 19 148/88 99 Room Air 97.7 03/08/18 12:15 97.2 03/08/18 12:12 97.2 56 18 123/76 97 Room Air 97.2 03/08/18 12:00 55 03/08/18 11:44 98.2 Intake and Output 03/08/18 03/09/18 19:00 07:00 Intake Total 740 ml 300 ml Balance 740 ml 300 ml Intake Oral 480 ml 300 ml IV Total 260 ml # Voids 3 1 Laboratory Tests Test 03/09/18 05:20 White Blood Count 5.0 K/UL (4.8-10.8) Red Blood Count 4.06 M/UL (4.20-5.40) L Hemoglobin 11.8 G/DL (12.0-16.0) L Hematocrit 35.1 % (37.0-47.0) L Mean Corpuscular Volume 86 FL (80-99) Mean Corpuscular Hemoglobin 29.1 PG (27.0-31.0) Mean Corpuscular Hemoglobin Concent 33.7 G/DL (32.0-36.0) Red Cell Distribution Width 12.3 % (11.6-14.8) Platelet Count 248 K/UL (150-450) Mean Platelet Volume 6.3 FL (6.5-10.1) L Neutrophils (%) (Auto) 50.4 % (45.0-75.0) Lymphocytes (%) (Auto) 41.4 % (20.0-45.0) Monocytes (%) (Auto) 5.0 % (1.0-10.0) Eosinophils (%) (Auto) 2.2 % (0.0-3.0) Basophils (%) (Auto) 0.9 % (0.0-2.0) Sodium Level 135 MMOL/L (136-145) L Potassium Level 4.8 MMOL/L (3.5-5.1) # Chloride Level 105 MMOL/L (98-107) Carbon Dioxide Level 21 MMOL/L (21-32) Anion Gap 9 mmol/L (5-15) Blood Urea Nitrogen 9 mg/dL (7-18) Creatinine 1.1 MG/DL (0.55-1.30) Estimat Glomerular Filtration Rate 52.2 mL/min (>60) Glucose Level 249 MG/DL (74-106) H Calcium Level 8.7 MG/DL (8.5-10.1) Phosphorus Level 2.7 MG/DL (2.5-4.9) Magnesium Level 1.8 MG/DL (1.8-2.4) Total Bilirubin 0.2 MG/DL (0.2-1.0) Aspartate Amino Transf (AST/SGOT) 30 U/L (15-37) Alanine Aminotransferase (ALT/SGPT) 29 U/L (12-78) Alkaline Phosphatase 112 U/L (46-116) Total Protein 6.7 G/DL (6.4-8.2) Albumin 2.4 G/DL (3.4-5.0) L Globulin 4.3 g/dL Albumin/Globulin Ratio 0.6 (1.0-2.7) L Amylase Level 154 U/L (25-115) H Lipase 454 U/L (73-393) H Height (Feet): 5 Height (Inches): 4.00 Weight (Pounds): 116 General Appearance: WD/WN, no apparent distress, alert Cardiovascular: normal rate Respiratory/Chest: normal breath sounds, no respiratory distress Abdominal Exam: normal bowel sounds, non tender, soft Extremities: normal range of motion, non-tender Isaiah Coreas NP March 09, 2018 11:19
[2018-03-09] MEDS: NS w/KCl 20mEq 1,000 ML IV SCH (11:36)
[2018-03-09 12:00] VITALS: BP 146/95
[2018-03-09] MEDS ORDERED: cefTRIAXone 1 GM in D5W 110 ML IVPB SCH (12:00)
--- NOTE | 2018-03-09 13:59 | Cardiology Report ---
APPROVED REPORT EKG Measurement Heart [id number] Normal sinus rhythm Normal ECG
--- NOTE | 2018-03-09 14:03 | Cardiology Report ---
APPROVED REPORT EKG Measurement Heart [id number] P52 [id number] Sinus rhythm Nonspecific T wave abnormality Prolonged QT Abnormal ECG
--- NOTE | 2018-03-09 15:58 | Pulmonology Progress Note ---
Assessment/Plan Problems: (1) Hyperkalemia (2) Pancreatitis Assessment/Plan improvng tolerating diet dc planning in progress Subjective ROS Limited/Unobtainable: No Constitutional: Reports: no symptoms HEENT: Repors: no symptoms Respiratory: Reports: no symptoms Allergies: Coded Allergies: SULFAMETHOXAZOLE (Verified Allergy, Unknown, SWELLING, 03/05/18) TRIMETHOPRIM (Verified Allergy, Unknown, SWELLING, 03/05/18) Objective Last 24 Hour Vital Signs Date Time Temp Pulse Resp B/P (MAP) Pulse Ox O2 Delivery O2 Flow Rate FiO2 03/09/18 12:00 98.0 69 19 146/95 Room Air 98.0 03/09/18 08:08 97.9 03/09/18 08:00 98.1 65 20 151/88 100 Room Air 98.1 03/09/18 07:38 97.9 03/09/18 04:00 97.9 64 20 141/79 100 97.9 03/09/18 00:45 96.3 65 20 154/86 99 Room Air 96.3 03/08/18 20:00 97.7 66 21 111/61 100 97.7 03/08/18 20:00 97.3 99 20 149/87 100 97.3 03/08/18 16:41 97.7 66 19 148/88 99 Room Air 97.7 Intake and Output 03/08/18 03/09/18 19:00 07:00 Intake Total 740 ml 300 ml Balance 740 ml 300 ml Intake Oral 480 ml 300 ml IV Total 260 ml # Voids 3 1 General Appearance: WD/WN HEENT: normocephalic, atraumatic Respiratory/Chest: chest wall non-tender, normal breath sounds Abdomen: normal bowel sounds, soft, non tender Genitourinary: normal external genitalia Extremities: no clubbing Neurologic/Psychiatric: tobacco hanger II-XII grossly normal, alert Laboratory Tests 03/09/18 05:20: White Blood Count 5.0, Red Blood Count 4.06L, Hemoglobin 11.8L, Hematocrit 35.1L , Mean Corpuscular Volume 86, Mean Corpuscular Hemoglobin 29.1, Mean Corpuscular Hemoglobin Concent 33.7, Red Cell Distribution Width 12.3, Platelet Count 248, Mean Platelet Volume 6.3L, Neutrophils (%) (Auto) 50.4, Lymphocytes ( %) (Auto) 41.4, Monocytes (%) (Auto) 5.0, Eosinophils (%) (Auto) 2.2, Basophils (%) (Auto) 0.9, Sodium Level 135L, Potassium Level 4.8#, Chloride Level 105, Carbon Dioxide Level 21, Anion Gap 9, Blood Urea Nitrogen 9, Creatinine 1.1, Estimat Glomerular Filtration Rate 52.2, Glucose Level 249H, Calcium Level 8.7, Phosphorus Level 2.7, Magnesium Level 1.8, Total Bilirubin 0.2, Aspartate Amino Transf (AST/SGOT) 30, Alanine Aminotransferase (ALT/SGPT) 29, Alkaline Phosphatase 112, Total Protein 6.7, Albumin 2.4L, Globulin 4.3, Albumin/ Globulin Ratio 0.6L, Amylase Level 154H, Lipase 454H Current Medications Medications (Trade) Dose Ordered Sig/Shruti Route PRN Reason Start Time Stop Time Status Last Admin Dose Admin Acetaminophen (Tylenol) 650 mg Q4H PRN ORAL T>100.5 03/08/18 17:00 04/04/18 16:59 Al Hydroxide/Mg Hydroxide (Mylanta II) 30 ml Q6H PRN ORAL dyspepsia 03/08/18 17:00 04/04/18 16:59 Amylase/Lipase/ Protease (Pancrease) 2 ea THREE TIMES A DAY ORAL 03/08/18 18:00 04/06/18 17:59 03/09/18 13:02 Ceftriaxone Sodium 1 gm/ Dextrose 110 ml @ 220 mls/hr Q24H IVPB 03/09/18 12:00 03/15/18 11:59 03/09/18 12:12 Clonidine HCl (Catapres Tab) 0.1 mg Q6H PRN ORAL For SBP>160 03/08/18 17:30 04/05/18 17:23 Dextrose (Dextrose 50%) 25 ml PRN IV Hypoglycemia 03/08/18 16:15 04/07/18 16:14 Dextrose (Dextrose 50%) 50 ml PRN IV hypoglycemia 03/08/18 16:15 04/07/18 16:14 Diphenhydramine HCl (Benadryl) 25 mg Q6H PRN ORAL Itching/Pruritis 03/08/18 17:00 04/04/18 16:59 Gemfibrozil (Lopid) 600 mg TWICE A DAY ORAL 03/09/18 18:00 04/08/18 17:59 Heparin Sodium (Porcine) (Heparin 5000 units/ml) 5,000 units EVERY 12 HOURS SUBQ 03/08/18 21:00 04/04/18 20:59 03/09/18 08:45 Insulin Aspart (NovoLOG) BEFORE MEALS AND HS SUBQ 03/08/18 17:30 04/04/18 17:29 03/09/18 12:06 Ketorolac Tromethamine (Toradol 30mg) 30 mg Q6H PRN IV Moderate Pain (Pain Scale 4-6) 03/08/18 17:00 03/10/18 16:59 03/09/18 05:14 Morphine Sulfate (Morphine Sulfate) 2 mg Q4H PRN IVP For Severe Pain (7-10) 03/08/18 17:00 03/13/18 16:59 03/09/18 07:38 Nitroglycerin (Ntg) 0.4 mg Q5M X 3 DOSES PRN SL Prn Chest Pain 03/08/18 16:15 04/04/18 19:44 Ondansetron HCl (Zofran) 4 mg Q6H PRN IVP Nausea & Vomiting 03/08/18 17:00 04/04/18 16:59 Polyethylene Glycol (Miralax) 17 gm HSPRN PRN ORAL Constipation 03/08/18 21:00 04/04/18 20:59 Sodium Chloride 1,000 ml @ 50 mls/hr Q20H IV 03/08/18 16:15 04/06/18 13:29 03/09/18 11:36 Temazepam (Restoril) 15 mg HSPRN PRN ORAL Insomnia 03/08/18 21:00 03/12/18 20:59 Isaiah Flores MD March 09, 2018 15:58
[2018-03-09 16:00] VITALS: BP 149/91
--- NOTE | 2018-03-12 06:59 | Diagnostic Imaging Report ---
APPROVED REPORT CPT Code: 83188 Present Symptoms Comments: Pain BILATERAL: Imaging reveals a patent deep venous system bilaterally. There is no evidence of thrombus within the femoral, popliteal or tibial segments. The greater saphenous veins are also within normal limits. Doppler indicates normal spontaneous flow within these segments.
--- NOTE | 2018-03-12 08:12 | Discharge Summary ---
Discharge Summary Discharge Summary _ DATE OF ADMISSION: 03/05/2018 DATE OF DISCHARGE: 03/09/2018 REASON FOR ADMISSION: 54 years old female with past medical history significant for diabetes mellitus type 2, dyslipidemia, recurrent pancreatitis and hypertension presented to the hospital complaining of abdominal pain in epigastric area associated with nausea and vomiting for the last 24 hours .No fever, no chills,patient was unable to tolerate oral fluids . Upon evaluation there was no leukocytosis, potassium 6.6, glucose 520, anion gap 16, AST 78, lipase 7551,. CT of the abdomen revealed acute nonnecrotizing pancreatitis. 4 mm calculus within the downstream of pancreatic duct. Nonvisualized gallbladder presumed surgically absent. Fibroid uterus. Urinalysis revealed +3 leukocyte esterase, pyuria, but only few bacteria +4 glucose +4ketones +3 protein., BUN 20 creatinine 1.3. Patient admitted with diagnosis of abdominal pain, nausea and vomiting likely related to pancreatitis, diabetes mellitus type 2 possibly early diabetic ketoacidosis, hypertension, hyperkalemia, metabolic acidosis, dyslipidemia. CONSULTANTS: pulmonary Dr. Dr. Flores GI specialist Dr. Lazaro [facility]SE: Patient admitted to initially to telemetry floor. GI consult was requested. Patient started on empiric antibiotic. Pain management , edematous hypoechoic pancreas consistent with acute pancreatitis. No calcification, focal ductal dilation in the pancreatic head reported on recent CT. Patient started on the IV fluids. GI specialist closely followed. MRCP revealed unremarkable liver, spleen, adrenals, kidneys. Suspected pancreatic ductal calculus described recent CT scan was not confirmed on MRCP images. Mild extrahepatic biliary ductal dilation was demonstrated without evidence of downstream obstructive lesion. Evidence of prior cholecystectomy. Patient started on clear liquid diet was advanced as tolerated. Antiemetics provided as needed. Lipid panel revealed elevated triglycerides 327, LDL 103. Patient was counseled on low-fat diet. Creon added to medication regimen. BRUCE screen was negative. IgG test revealed elevated IgG3 118. Bowel regimen instituted, patient started on PPI . Amylase and lipase were trended, prior to discharge amylase down to 154 lipase down to 454. Hemoglobin and hematocrit were closely monitored with goal to keep hemoglobin above 8 . Hemoglobin and hematocrit remain stable. Renal parameters and electrolytes were closely monitored. Electrolytes ere corrected as needed. Nephrotoxins were avoided. Potassium stable after correction Blood sugar was managed with long-acting Levemir and sliding scale insulin. Anion gap closed, probably was due to uncontrolled vomiting . Hemoglobin A1c 13.6, clearly not at goal. Patient needs tighter anti -glycemic regimen to be continued closely as outpatient. Home antihypertensive medication regimen was resumed. Blood pressure was stable. Supplemental oxygen provided as needed to keep pulse oximetry above 92% . Symptomatic treatment provided. Urine culture revealed Escherichia coli. Patient was on empiric antibiotic for acute pancreatitis, covering for Escherichia coli infection. Patient had no urinary complaints, possibly asymptomatic bacteriuria. Patient status post treatment with antibiotics. Patient clinically improved, tolerated diet, pain controlled, no further nausea and vomiting. Patient was stable for discharge FINAL DIAGNOSES: Acute nonnecrotizing pancreatitis on chronic pancreatitis Abdominal pain with nausea and vomiting due to episode of acute pancreatitis, resolved Diabetes mellitus type 2 with hyperglycemia,out of control Dyslipidemia Hyperkalemia Hypertension Urinary tract infection with Escherichia coli/asymptomatic bacteriuria DISCHARGE MEDICATIONS: See Medication Reconciliation list. DISCHARGE INSTRUCTIONS: Patient was discharged home, follow-up with the primary care provider in one week. Patient to follow-up with a GI specialist per referral from primary care provider I have been assigned to dictate discharge summary for this account. I was not involved in the patient's management. Kym Barahona NP March 12, 2018 08:12
== END 2018-03-09 17:23 | disposition home or self-care (01) | DRG 282 ==
LOC: EDBD 14:28 → EMR 15:11 → 2E 17:16 → EDBEDREQ 17:18 → 4W 03-08 16:02
DX: K85.90 Acute pancreatitis without necrosis or infection, unspecified (principal); E11.10 Type 2 diabetes mellitus with ketoacidosis without coma; E87.5 Hyperkalemia; K83.8 Other specified diseases of biliary tract; K86.1 Other chronic pancreatitis; I10 Essential (primary) hypertension; E78.5 Hyperlipidemia, unspecified; Z79.4 Long term (current) use of insulin; Z88.2 Allergy status to sulfonamides; Z88.8 Allergy status to other drugs, medicaments and biological substances; Z90.49 Acquired absence of other specified parts of digestive tract; N39.0 Urinary tract infection, site not specified; B96.20 Unspecified Escherichia coli [E. coli] as the cause of diseases classified elsewhere
CPT/HCPCS: 36415; 36600; 74177; 74181; 76700; 80053; 80061; 81003; 82009; 82150; 82784; 82787; 82803; 82962; 83036; 83605; 83690; 83735; 84100; 84443; 84484; 85025; 85610; 85651; 85730; 86039; 86140; 87040; 87086; 87181; 87324; 93005; 93970; 99291; J1815; J2405; J8499